=== PATIENT | male | born 1980 | race Caucasian/White ===

== ENCOUNTER 2019-12-10 16:34 | Outpatient (CLI) | payer BC, SELFPAY ==
--- NOTE | 2019-12-10 | XR_ITS ---
WS: [id number] Chest 2 views, 12/10/2019 Clinical Data: CHRONIC COUGH Comparison: PA and lateral chest, 09/25/2018. Findings: No nodules, masses or effusions are seen. The heart is normal. The pulmonary vascularity is not increased. No pneumonia or pneumothorax is seen. XR/XR chest 2V* [id number] Impression: Negative chest.
== END 2019-12-10 16:35 | disposition home or self-care (01) ==
LOC: RADOUTREAD 12-11 07:26
PROVIDERS: Visit Provider Family Medicine
DX: Z01.89 Encounter for other specified special examinations (principal)

== ENCOUNTER → 2021-09-14 00:01 | Outpatient (BNVA) | payer BC, SELFPAY | PROVIDERS: PCP Family Medicine; Visit Provider Orthopaedic Surgery | DX: Z20.822 Contact with and (suspected) exposure to COVID-19 (principal); M25.531 Pain in right wrist | CPT/HCPCS: 87635 ==

== ENCOUNTER 2021-09-21 06:18 | Day surgery (SDC) | payer BC, SELFPAY ==
[2021-09-20 15:18] VITALS: BMI 31.0
[2021-09-21] VITALS (22 sets, daily range): BP systolic 123–192; BP diastolic 79–127; PULSE 76–98; RESP 16–21; TEMP 36.6–37.1; O2SAT 92–98
[2021-09-21] MEDS: sodium chloride 0.9% 1,000 ML 30 ML IV (07:01)
--- NOTE | 2021-09-21 07:32 | ANES.PREANE2 ---
Pre-Anesthetic Assessment Pre-Anesthetic Assessment: Height/Weight: Height 1.75 m Weight 95.254 kg Temp Pulse Resp BP Pulse Ox 98.6 F 88 18 166/112 98 09/21/21 06:29 09/21/21 06:29 09/21/21 06:29 09/21/21 06:29 09/21/21 06:29 Preop Diagnosis: Right cubital tunnel syndrome Proposed Procedure: Operation Date: 09/21/21 07:45 Proposed Procedures p Ulna Nerve Decompression 48221 M25.531(Right) - Mansoor Burch MD Was Beta Vicky taken within 24 hours: N/A Was Clonidine taken within 24 hours: N/A Last intake: Intake Last Liquid Date 09/20/21 Last Liquid Time 22:00 Last Solid Date 09/20/21 Last Solid Time 20:00 Social: Social History: Tobacco and No alcohol Exam: Pre-Anes Outpt Exam: alert, oriented x 3 and regular rate & rhythm Airway: Submandibular: WNL Cervical ROM: WNL MP: 2 Dentition: False Additional comments: Heavy Dasilva Pulmonary: Pulmonary: COPD Anesthetic Plan: ASA status: 3 Anesthesia: General Risk of > 500 ml blood loss (7ml/kg in children): No Meds/Allergies Current Medications: Current Medications Generic Name Dose Route Start Last Admin Trade Name Freq PRN Reason Stop Dose Admin Sodium Chloride 1,000 mls @ 30 ml s/hr 09/21/21 06:30 09/21/21 07:01 Sodium Chloride 0.9% IV 09/22/21 06:29 30 mls/hr .Q24H PRETTY Administration PFSH Anesthesia PFSH: Family History Other Hypertension Social History Alcohol intake: former Data Anesthesia Cardiac Studies: Holter Monitor 01/18/20
--- NOTE | 2021-09-21 08:14 | W.PM.OPSUD ---
Surgery/Procedure H&P Update DATE OF PROCEDURE: September 21, 2021 DATE H&P PERFORMED: 08/22/21 H&P UPDATE INFORMATION: I have reviewed H&P completed within last 30 days PREOP DIAGNOSIS: Right cubital tunnel syndrome PLANNED PROCEDURE: Operation Date: 09/21/21 07:45 Proposed Procedures p Ulna Nerve Decompression 71957 M25.531(Right) - Mansoor Burch MD
--- NOTE | 2021-09-21 08:16 | PM.OP ---
Operative Report Date of procedure: September 21, 2021 Pre-op Diagnosis: Right cubital tunnel syndrome Post-op diagnosis: same Procedure Done: Right cubital tunnel decompression Pathology: none sent Surgeon: Mansoor Burch Anesthesia: General Estimated blood loss (mL): 5 Tourniquet time (min): 9 Findings: No masses or space-occupying lesions were seen within the cubital tunnel Condition: stable Disposition: PACU Brief History: Lico is a 41-year-old male with wrist pain and EMG nerve conduction studies showed cubital tunnel syndrome. Over the past 2 weeks the patient has began to develop numbness in his thumb index and long finger, however EMG nerve conduction studies showed only mild symptomatology. This appears to be a fairly acute onset and efforts will be made at conservative measures including night splint and a corticosteroid injections. Procedure: The patient was taken to the operating room and given a general anesthesia. A tourniquet was inflated to 225 mmHg. A timeout was performed. A 5 cm long incision was made behind the medial epicondyle. Dissection was accomplished bluntly under loupe magnification identifying the ulnar nerve proximally. Utilizing a hemostat the fascia over the nerve was elevated and incised proximally. Dissection was then carried distally behind the medial epicondyle and into the flexor carpi ulnaris musculature. Dissection was stopped with the first muscular branches identified. Elbow was brought through range of motion with the nerve seen to stay reduced behind the medial epicondyle. No formal transition was thought to be warranted. Wounds were irrigated with saline. Deep tissues were closed with 2-0 Vicryl. Subcutaneous is closed with 3-0 Vicryl. The skin was closed with a running 3-0 Prolene. An 18-gauge needle was then introduced into the carpal tunnel just ulnar to the palpable palmaris longus tendon. The carpal tunnel was infiltrated with 1/2 cc of Celestone Soluspan and 1/2 cc of 0.5% Marcaine. Steri-Strips were applied to the elbow.. Xeroform gauze, 4 x 4's, compressive cast padding, and Ketan wrap, and a sling were applied. The patient was taken recovery room in stable condition.
[2021-09-21] MEDS: betamethasone susp 6 mg/mL 5 mL 30 MG IM (08:55)
--- NOTE | 2021-09-21 09:25 | SUR.PHASEI ---
patient into pacu with oral airway in place and simple mask with O2 at 6L. patient has dressing to right arm in place and right arm in sling. fingers to right hand warm, pink. dressing dry.
--- NOTE | 2021-09-21 09:28 | P.PCN_ITS ---
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
--- NOTE | 2021-09-21 09:28 | PM.PACU ---
Documented by User: Jd Viveros CRNA 09/21/21 09:28 PACU note PACU note: VSS, Good respiratory effort, report to CORRECTIONAL FACILITY PSYCHIATRIST Post-Anesthesia Exam: awake
--- NOTE | 2021-09-21 09:32 | SUR.PHASEI ---
patient awake, oral airway removed. patient talking but drowsy. on room air with sats at 99%.
[2021-09-21] MEDS: fentaNYL 50 mcg/mL INJ 2mL IVP (09:41)
[2021-09-21] MEDS: hyDRALAzine 20 mg/mL INJ 1 mL 10 MG IVP (10:08)
--- NOTE | 2021-09-21 10:09 | PC.NURSE ---
Pts blood pressure elvated \Dr Whyte notified per Leia Armendariz. Orders recieved for 10 mg IV HYdralazine
[2021-09-21] MEDS: metoprolol tartrate 1 mg/1 mL SDV 5 mL 5 MG IVP (10:25)
[2021-09-21] MEDS: HYDROcodone-acetaminophen 5-325 mg Tablet 1 TAB PO (11:22)
--- NOTE | 2021-09-21 13:08 | ANE.PACU2 ---
Inpatient post-anesthesia follow up: Airway intact: Yes Vital signs: Temperature 98.7 F Pulse Rate 82 Respiratory Rate 18 Blood Pressure 171/118 Pulse Oximetry 95 Oxygen Delivery Me thod Room Air Oxygen Flow Rate 6 Fraction of Inspir ed Oxygen Hydration adequate: Yes Nausea and vomiting: No Pain level: 2 Mental status: Baseline
== END 2021-09-21 11:54 | disposition home or self-care (01) ==
PROVIDERS: PCP Family Medicine; Visit Provider Orthopaedic Surgery
PROC: (CPT 64718; principal; 2021-09-21 07:45)
DX: G56.21 Lesion of ulnar nerve, right upper limb (principal); J44.9 Chronic obstructive pulmonary disease, unspecified; Z82.49 Family history of ischemic heart disease and other diseases of the circulatory system
CPT/HCPCS: 64718; J0360; J0690; J0702; J2704; J3010; J3490; J7030

== ENCOUNTER 2022-08-03 09:12 | Outpatient (CLI) | payer BC, SELFPAY ==
--- NOTE | 2022-08-03 09:25 | MR_ITS ---
WS: [id number] MRI BRAIN WITH HIGH-RESOLUTION IMAGING THROUGH THE INTERNAL AUDITORY CANALS WITHOUT AND WITH CONTRAST HISTORY: SUDDEN IDIOPATHIC HEARING LOSS,LEFT EAR COMPARISON: None available. TECHNIQUE: Multiplanar, multisequence imaging is performed through the brain. Additional 3 mm imaging performed in multiple planes through the internal auditory canal. Postcontrast imaging with 20 ml's of MultiHance. No acute intracranial hemorrhage, midline shift, edema or mass effect. No acute infarct. Significant atrophy or volume loss. Very minimal small vessel ischemic type changes within the white matter. No prior infarct. No hemorrhage. Ventricles and extra-axial spaces are normal. No inferior displacement of cerebellar tonsils. Clivus and pituitary gland are normal. Internal and external auditory canals: Unremarkable. Cranial nerves VII and VIII complexes: Unremarkable. No enhancement or mass. Cerebellopontine angles: Normal. Paranasal sinuses: Moderate diffuse mucoperiosteal thickening in the maxillary sinuses. No air-fluid levels. Mastoid air cells: Normal. Calvarium and scalp: Normal. Visualized [place] and dural venous sinuses demonstrate no abnormality. MR/MR iac's wo/w con* [id number] IMPRESSION: 1. No signal abnormality or enhancement along the internal auditory canals. 2. Negative mastoid air cells. 3. No prior infarct. No hemorrhage.
[2022-08-03] MEDS: gadobenate dimeglumine 20 mL vial IV (10:12)
== END 2022-08-03 09:13 | disposition home or self-care (01) ==
PROVIDERS: PCP Family Medicine; Visit Provider Otolaryngology
DX: H91.22 Sudden idiopathic hearing loss, left ear (principal)
CPT/HCPCS: 70553; A9577

== ENCOUNTER 2023-05-12 12:24 | Emergency (ER) | payer BC, SELFPAY ==
--- NOTE | 2023-05-12 12:24 | ECG_ITS ---
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 Measurements Intervals [place] Rate: 99 P: 16 VA: 120 QRS: -10 QRSD: 94 T: -13 QT: 334 QTc: 429 Interpretive Statements SINUS RHYTHM LEFT VENTRICULAR HYPERTROPHY AND ST-T CHANGE [VOLTAGE CRITERIA PLUS ST/T ABNORMALITY] No previous ECG available for comparison Electronically Signed On 05-12-2023 15:11:41 CDT by Kurt José M.D. [email or web address]/[id number] f
[2023-05-12 12:25] VITALS: PULSE 103; RESP 26; TEMP 36.8; O2SAT 99; BMI 31.0
--- NOTE | 2023-05-12 12:37 | XRR_ITS ---
PROCEDURE INFORMATION: Exam: XR Chest Exam date and time: 05/12/2023 12:59 PM Age: 43 years old Clinical indication: Chest wall pain; Additional info: Chest pain TECHNIQUE: Imaging protocol: Radiologic exam of the chest. Views: 1 view. COMPARISON: CR XR chest 2V* [id number] 06/24/2020 11:24 AM FINDINGS: Lungs: Unremarkable. No consolidation. Pleural spaces: Unremarkable. No pleural effusion. No pneumothorax. Heart/Mediastinum: Unremarkable. No cardiomegaly. Bones/joints: Unremarkable. XR/XR chest 1V portable [id number] IMPRESSION: No acute findings.
--- NOTE | 2023-05-12 12:43 | ED_ITS ---
HPI - Chest Pain General: Chief Complaint: Chest Pain Stated Complaint: back injury Time Seen by Provider: 05/12/23 12:37 Source: patient Mode of arrival: ambulatory History of Present Illness: 43-year-old male presents emergency room complaining of chest pain. He describes the chest pain as starting in his shoulder and moving to his left chest and substernally. He was seen previously at another local ER and evaluated had a negative work-up. Having recurrent symptoms today. States pain focused around the left shoulder is worse with movement at the shoulder. He was seen yesterday at [facility]. They prescribed pain medications and discharged him home. MD complaint: chest pain Onset (ago): day(s) Prior episodes: Yes Onset: during rest Pain location: other (Begins in the left shoulder radiates to the chest) Quality: sharp Relieving factors: rest Exacerbating factors: movement Associated symptoms: Deny abdominal pain, diaphoresis, dyspnea, fever(s), leg edema, nausea, palpitations, sense of impending doom, syncope or vomiting Treatment prior to arrival: other (Pain medications) Review of Systems Const: Denies: fever(s), chills or diaphoresis ENMT: Denies: throat pain, ear or mastoid pain, nasal discharge or nasal congestion Card: Reports: chest pain; Denies: palpitations, irregular heart rhythm, edema or syncope Resp: Denies: dyspnea GI: Denies: abdominal pain, nausea or vomiting : Denies: flank pain, dysuria, urinary frequency or urinary urgency Musc: Reports: joint pain; Denies: neck pain or back pain Skin/Breast: Denies: rash or pruritus PFSH ED PFSH: Family History Other Hypertension Social History Alcohol intake: former Physical Exam Const: GENERAL APPEARANCE: cooperative and comfortable ORIENTA TION/CONSCIOUSNESS: Yes awake, Yes oriented to person, Yes oriented to place and Yes oriented to time HENMT: COMMON NORMALS: normocephalic, atraumatic and hearing grossly normal bilaterally HEAD & SCALP: normocephalic and atraumatic Resp: COMMON NORMALS: normal respiratory effort, No retractions, No use of accessory muscles and clear to auscultation bilaterally AUSCULTATION: clear to auscultation bilaterally Cardio: COMMON NORMALS: regular rate, regular rhythm and No murmurs present (Cardio) RATE: regular rate RHYTHM: regular rhythm GI: COMMON NORMALS: Soft to palpation and No hepatosplenomegaly present AUSCULTATION: Yes normoactive bowel sounds PALPATION: Yes Soft to palpation, No Tenderness to palpation present (GI), No Guarding due to palpation present (GI) and Yes No hepatosplenomegaly present Extremity: COMMON NORMALS: normal to inspection, capillary refill normal, no clubbing, cyanosis or edema, no calf tenderness and no pedal edema Neuro: SENSORIUM/ORIENTATION: Yes oriented to person, Yes oriented to place and Yes oriented to time Skin: COMMON NORMALS: no rashes or lesions noted GENERAL SKIN EXAM: no rashes or lesions noted Course Vital Signs: Vital signs: Vital Signs Temperature 98.2 F 05/12/23 12:25 Pulse Rate 77 05/12/23 15:51 Respiratory Rate 16 05/12/23 14:38 Blood Pressure 175/119 05/12/23 15:51 Pulse Oximetry 93 05/12/23 15:51 Oxygen Delivery Me thod Room Air 05/12/23 13:06 MDM - Chest Pain Medical Decision Making Records received from [facility] patient had extensive work-up there including serial cardiac enzymes EKGs CTA of the chest and CT for thoracic spine. All of this was negative. On exam most of his pain seems actually focused around the shoulder itself. He denies any recent trauma or falls illness taxes if he has a traumatic rotator cuff tear. CRP is normal his white count is elevated but he was started on steroids after he left [facility] according to their notes patient does states he has been taking them. At this time not finding any emergent condition. We did CT his shoulder to make sure there was no evidence of infection in the joint itself although palpation of the joint there is no redness or erythema is not hot to the touch. Neurovascularly he is intact. Discharge patient home continue the steroids given diclofenac as well as some hydrocodone. We will refer him to orthopedics. Medical Records I reviewed the patient's medical records. Lab Data I reviewed the patient's lab results. 05/12/23 12:56 05/12/23 12:56 Radiology Impressions Chest X-Ray 05/12/23 12:37 IMPRESSION: No acute findings. Shoulder X-Ray 05/12/23 13:17 IMPRESSION: No acute findings. Shoulder CT 05/12/23 13:57 IMPRESSION: Unremarkable CT. Laboratory Results WBC 21.52 10^3/uL (3.29-11.43) H 05/12/23 12:56 RBC 6.30 10^6/uL (3.85-5.65) H 05/12/23 12:56 Hgb 16.80 g/dL (11.27-16.99) 05/12/23 12:56 Hct 50.2 % (37-53) 05/12/23 12:56 MCV 79.7 fl (82-101) L 05/12/23 12:56 MCH 26.7 pg (27-33) L 05/12/23 12:56 MCHC 33.5 g/dL (30-55) 05/12/23 12:56 RDW 13.7 % (12.1-15.1) 05/12/23 12:56 Plt Count 366 10^3/cmm (157-399) 05/12/23 12:56 MPV 9.0 fL (7.4-10.4) 05/12/23 12:56 Neut % (Auto) 84.9 % 05/12/23 12:56 Lymph % (Auto) 10.5 % 05/12/23 12:56 [place] % (Auto) 3.9 % 05/12/23 12:56 Eos % (Auto) 0.0 % 05/12/23 12:56 Baso % (Auto) 0.1 % 05/12/23 12:56 Neut # (Auto) 18.24 10^3/uL (1.8-7.7) H 05/12/23 12:56 Lymph # (Auto) 2.3 10^3/uL (0.8-4.8) 05/12/23 12:56 [place] # (Auto) 0.9 10^3/uL (0.2-0.9) 05/12/23 12:56 Eos # (Auto) 0.0 10^3/uL (0.0-0.8) 05/12/23 12:56 Baso # (Auto) 0.0 10^3/uL (0.0-0.1) 05/12/23 12:56 Nucleated RBC % (auto) 0 % 05/12/23 12:56 Nucleated RBCs # 0.0 /100WBC 05/12/23 12:56 Sodium 136 mmol/L (136-145) 05/12/23 12:56 Potassium 4.5 mmol/L (3.5-5.1) 05/12/23 12:56 Chloride 97 mmol/L (98-107) L 05/12/23 12:56 Carbon Dioxide 26 mmol/L (22-29) 05/12/23 12:56 Anion Gap 17.5 (5-19) 05/12/23 12:56 BUN 16 mg/dL (6-20) 05/12/23 12:56 Creatinine 0.8 mg/dL (0.7-1.2) 05/12/23 12:56 GFR Calculation 104.5 mL/min (90-130) 05/12/23 12:56 Glucose 118 mg/dL (65-115) H 05/12/23 12:56 Calculated Osmolality 284 mOsm/kg (285-295) L 05/12/23 12:56 Calcium 9.7 mg/dL (8.5-10.5) 05/12/23 12:56 Total Bilirubin 0.3 mg/dL (0.15-1.2) 05/12/23 12:56 AST 30 U/L (0-40) 05/12/23 12:56 ALT 60 U/L (0-41) H 05/12/23 12:56 Alkaline Phosphatase 135 U/L (40-130) H 05/12/23 12:56 Troponin T Baseline 8 ng/L (0-15) 05/12/23 12:56 Troponin T 120 Minute 9.47 ng/L (0-15) 05/12/23 14:51 Delta Troponin T 1.47 ABS# (0-10) 05/12/23 14:51 C-Reactive Protein 3.0 mg/L (0.0-4.9) 05/12/23 12:56 Total Protein 7.5 g/dL (6.6-8.7) 05/12/23 12:56 Albumin 4.8 g/dL (3.5-5.2) 05/12/23 12:56 Globulin 2.7 g/dL (1.3-4.6) 05/12/23 12:56 Discharge Plan Discharge Patient Disposition: Home Clinical Impression: Acute pain of left shoulder Condition: Stable Prescriptions: New hydrocodone-acetaminophen 5-325 mg tablet 1 tab PO Q6H PRN (Reason: pain) Qty: 10 0RF diclofenac sodium 75 mg tablet,delayed release (DR/EC) 75 mg PO Q12H PRN (Reason: pain) Qty: 20 0RF Discontinued meloxicam 15 mg tablet 15 mg PO DAILY No Action levocetirizine [Xyzal] 5 mg tablet 5 mg PO DAILY (DME) cock up splint See Rx Instructions .Route .MEDSUPPLY Qty: 1 0RF Rx Instructions: As directed chlorzoxazone 500 mg tablet 250 mg PO TID PRN (Reason: Muscle Spasm) methylprednisolone 4 mg tablets,dose pack See Rx Instructions .ROUTE .COMPLEX Rx Instructions: TAKE PER PACKAGE INSTRUCTIONS Discharge Orders: Discharge ED (Routine); Ordered 05/12/23 Ordered By: Esa Zhu Referrals: Dyllan Luque MD [Primary Care Provider] - Patient Instructions: Opioid Safety, Pain Management Activity Restrictions/Additional Instructions: Case management make arrangements for you to see orthopedics. Coding Level of Care Code ED Database Management Specialist for Leroy Vigil
[2023-05-12 13:04] LABS: Basophils % 0.1 %; Hematocrit 50.2 % (37-53); Lymphocytes # 2.3 10^3/uL (0.8-4.8); Lymphocytes % 10.5 %; Mean Corpuscular HGB Conc 33.5 g/dL (30-55); Mean Corpuscular Hemoglobin 26.7 pg (27-33); Mean Corpuscular Volume 79.7 fl (82-101); Monocytes # 0.9 10^3/uL (0.2-0.9); Monocytes % 3.9 %; Neutrophils # 18.24 10^3/uL (1.8-7.7); Neutrophils % 84.9 %; Nucleated Red Blood Cells % 0 %; Platelet Count 366 10^3/cmm (157-399); Red Cell Distribution Width 13.7 % (12.1-15.1); White Blood Count 21.52 10^3/uL (3.29-11.43)
[2023-05-12 13:06] VITALS: BP 163/109; PULSE 85; RESP 18; O2SAT 95
[2023-05-12] MEDS: aspirin 81 mg Chew Tablet 324 MG PO (13:15)
--- NOTE | 2023-05-12 13:17 | XRR_ITS ---
PROCEDURE INFORMATION: Exam: XR Left Shoulder Exam date and time: 05/12/2023 1:22 PM Age: 43 years old Clinical indication: Pain; Shoulder; Left TECHNIQUE: Imaging protocol: Radiologic exam of the left shoulder. Views: 2 or more views. COMPARISON: CR XR shoulder LT min 2V* [id number] 05/09/2023 7:45 AM FINDINGS: Bones/joints: Osseous structures are intact. Negative for fracture. Joint spaces are preserved. Soft tissues: Normal. XR/XR shoulder LT min 2V* [id number] IMPRESSION: No acute findings.
[2023-05-12 13:35] LABS: Troponin(5th) Baseline 8 ng/L (0-15)
[2023-05-12 13:36] LABS: Alanine Aminotransferase 60 U/L (0-41); Albumin Level 4.8 g/dL (3.5-5.2); Alkaline Phosphatase 135 U/L (40-130); Anion Gap 17.5 (5-19); Aspartate Amino Transferase 30 U/L (0-40); Blood Urea Nitrogen 16 mg/dL (6-20); Calcium 9.7 mg/dL (8.5-10.5); Carbon Dioxide 26 mmol/L (22-29); Chloride 97 mmol/L (98-107); Globulin 2.7 g/dL (1.3-4.6); Glomerular Filtration Rate 104.5 mL/min (90-130); Glucose 118 mg/dL (65-115); Osmolality Calculated 284 mOsm/kg (285-295); Potassium 4.5 mmol/L (3.5-5.1); Sodium 136 mmol/L (136-145); Total Bilirubin 0.3 mg/dL (0.15-1.2); Total Protein 7.5 g/dL (6.6-8.7)
--- NOTE | 2023-05-12 13:57 | CTR_ITS ---
PROCEDURE INFORMATION: Exam: CT Left Upper Extremity With Contrast, Shoulder Exam date and time: 05/12/2023 2:16 PM Age: 43 years old Clinical indication: Pain; Shoulder; Left; Additional info: Pain/leukocytosis TECHNIQUE: Imaging protocol: Computed tomography of the left upper extremity with contrast. Exam focused on the shoulder Radiation optimization: All CT scans at this facility use at least one of these dose optimization techniques: automated exposure control; mA and/or kV adjustment per patient size (includes targeted exams where dose is matched to clinical indication); or iterative reconstruction. Contrast material: OMNI 350; Contrast volume: 100 ml; Contrast route: INTRAVENOUS (IV); REPORTING DATA: Count of CT and Cardiac NM exams in prior 12 months: This patient has received 0 known CTs and 0 known cardiac nuclear medicine studies in the 12 months prior to the current study. COMPARISON: CR (CHEST, ) 05/12/2023 1:22 PM RADIATION DOSE METRICS: Total DLP (mGy-cm): 251.79 FINDINGS: Bones/joints: Normal. No acute fracture or dislocation. Soft tissues: Normal. CT/CT shoulder LT w con [id number] IMPRESSION: Unremarkable CT.
[2023-05-12] MEDS: iohexol 350 mg/mL 500 mL Btl (per mL) IV (14:19)
--- NOTE | 2023-05-12 14:37 | ECG_ITS ---
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 Measurements Intervals [place] Rate: 84 P: 42 TN: 128 QRS: 61 QRSD: 97 T: 59 QT: 385 QTc: 457 Interpretive Statements SINUS RHYTHM POSSIBLE LEFT ATRIAL ENLARGEMENT [-0.1mV P-WAVE IN V1/V2] POSSIBLE LEFT VENTRICULAR HYPERTROPHY [VOLTAGE CRITERIA PLUS LAE OR QRS WIDENING] Compared to ECG 05/12/2023 12:24:15 ST (T wave) deviation no longer present Electronically Signed On 05-12-2023 15:21:53 CDT by Kurt José M.D. [id number]
[2023-05-12 14:38] VITALS: RESP 16
[2023-05-12] MEDS: morphine 4 mg/mL SDV 1 mL IVP (14:38)
[2023-05-12] MEDS: ondansetron 2 mg/ML SDV 2 mL 4 MG IVP (14:39)
[2023-05-12 15:51] VITALS: BP 175/119; PULSE 77; O2SAT 93
[2023-05-12 16:30] LABS: Troponin 5 2HR 9.47 ng/L (0-15); Troponin 5 2HR Delta 1.47 ABS# (0-10)
--- NOTE | 2023-05-13 10:33 | DCPLANNER ---
Addendum entered by Carmela Elizabeth 05/22/23 11:08: acting manager received the following message from the ortho clinic regarding follow up appointment: tried to call patient to get set up for 06/14 w/ dr landry - left . I will mail him a letter to give us call as well Addendum entered by Carmela Elizabeth 05/15/23 11:33: acting manager received the following message from the ortho clinic regarding follow up appointment: spoke to patient - he is going to call us back once he gets an date set up for his MRI. We will get him in with Dr. Landry after MRI Original Note: acting manager had message to schedule a follow up appointment for patient for ortho. acting manager sent patients information to the front office staff at ortho. Patients information will be printed and reviewed. Clinic will call patient with appointment information.
--- NOTE | 2023-05-13 15:03 | DCPLANNER ---
work manager had message to schedule an outpatient MRI for patient. work manager faxed signed order to centralized scheduling, who will call patient with appointment information.
== END 2023-05-12 15:54 | disposition home or self-care (01) ==
PROVIDERS: Emergency Provider Family Medicine; PCP Family Medicine
DX: M25.512 Pain in left shoulder (principal)
CPT/HCPCS: 36415; 71045; 73030; 73201; 80053; 84484; 85025; 86140; 93005; 96374; 96375; 99285; J2270; J2405; Q9967

== ENCOUNTER 2023-06-06 14:56 | Outpatient (CLI) | payer BC, SELFPAY ==
--- NOTE | 2023-06-06 15:06 | MR_ITS ---
WS: [id number] MRI LEFT SHOULDER HISTORY: L SHOULDER PAIN COMPARISON: CT LEFT shoulder 05/12/2023 TECHNIQUE: Multiplanar sequences of the shoulder joint are submitted. Mild AC joint arthritis. Mild osteophyte encroachment upon the supraspinatus muscle. Mild subacromial impingement. No fluid within the subacromial or subdeltoid bursa. Normal position of the biceps tend on. No os acromion. No rotator cuff muscle atrophy or edema. No rotator cuff tear. No labral tear. There is a tiny amount of increased T2 signal seen only on one image in the superior labrum. Cannot determine labral tear o n a single image with increased signal. IMPRESSION: 1. Mild AC joint arthritis with encroachment upon the supraspinatus muscle. 2. Mild subacromial impingement. 3. No rotator cuff tear.
== END 2023-06-06 14:57 | disposition home or self-care (01) ==
PROVIDERS: PCP Family Medicine; Visit Provider Family Medicine
DX: M19.012 Primary osteoarthritis, left shoulder (principal); M75.42 Impingement syndrome of left shoulder
CPT/HCPCS: 73221

== ENCOUNTER 2023-07-08 08:38 | Outpatient (CLI) | payer BC, SELFPAY ==
--- NOTE | 2023-07-08 08:45 | MR_ITS ---
WS: [id number] MRI CERVICAL SPINE NONCONTRAST TECHNIQUE: Sagittal T1, T2 and STIR imaging. Axial T2, gradient, and fiesta imaging. CLINICAL INFORMATION: post op COMPARISON: None. FINDINGS: Straightening with slight reversal normal cervical lordosis. Segmentation anomaly C6-7. Disc bulging worse at C7-T1. C2-C3: Mild LEFT and no significant RIGHT foraminal narrowing. Mild LEFT facet arthropathy. Spinal ca nal is patent. C3-C4: Disc osteophyte complex with endplate ridging. Moderate LEFT and mild RIGHT bony foraminal jigar rowing. Mild facet arthropathy. C4-C5: Disc osteophyte complex with endplate ridging. Severe RIGHT and moderate LEFT bony foraminal n arrowing. Mild facet arthropathy. Mild central canal stenosis. C5-C6: Disc osteophyte complex with endplate ridging. Spinal canal is patent. Moderate to severe RIGH T and moderate LEFT bony foraminal narrowing. Mild facet arthropathy. C6-C7: Segmentation anomaly. Spinal canal and foramen are patent. Mild facet arthropathy. C7-T1: LEFT paracentral protrusion. Moderate LEFT and mild RIGHT foraminal narrowing. Visualized brain stem structures: Normal. Prevertebral soft tissues: Normal. IMPRESSION: 1. Straightening with slight reversal of the normal cervical lordosis. 2. Mild central canal stenosis C4-5. 3. Small LEFT subarticular disc protrusion C7-T1 with moderate LEFT foraminal narrowing. 4. Moderate to severe bony foraminal narrowing RIGHT C4-C5 5. Moderate to severe bilateral bony foraminal narrowing C5-6 RIGHT greater than LEFT. 6. Moderate facet arthropathy C4-C5 and C5-C6.
== END 2023-07-08 08:39 | disposition home or self-care (01) ==
LOC: RAD 08:39
PROVIDERS: PCP Family Medicine; Visit Provider Physician Assistant
DX: Z98.890 Other specified postprocedural states (principal); M48.061 Spinal stenosis, lumbar region without neurogenic claudication; M50.23 Other cervical disc displacement, cervicothoracic region
CPT/HCPCS: 72141

== ENCOUNTER 2023-12-23 13:56 | Observation (INO) | payer BC, SELFPAY ==
[2023-12-23] VITALS (11 sets, daily range): BP systolic 126–181; BP diastolic 83–122; PULSE 75–115; RESP 15–29; TEMP 37–37.1; O2SAT 91–99; BMI 24.3
--- NOTE | 2023-12-23 13:58 | XRR_ITS ---
PROCEDURE INFORMATION: Exam: XR Chest Exam date and time: 12/23/2023 2:07 PM Age: 43 years old Clinical indication: Pain; Chest pressure; Additional info: Cp TECHNIQUE: Imaging protocol: Radiologic exam of the chest. Views: 1 view. COMPARISON: CR XR chest 1V portable [id number] 05/12/2023 12:59 PM FINDINGS: Lungs: Unremarkable. No consolidation. Pleural spaces: Unremarkable. No pleural effusion. No pneumothorax. Heart/Mediastinum: Unremarkable. No cardiomegaly. Bones/joints: There is deformity of the left 1st rib. No acute findings. XR/XR chest 1V portable [id number] IMPRESSION: No acute findings.
--- NOTE | 2023-12-23 13:58 | ECG_ITS ---
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 Measurements Intervals [place] Rate: 114 P: 59 ME: 114 QRS: 70 QRSD: 90 T: 70 QT: 329 QTc: 453 Interpretive Statements SINUS TACHYCARDIA WITH SHORT ME INTERVAL VOLTAGE CRITERIA FOR LVH [MEETS CRITERIA IN ONE OF: R(aVL), S(V1), R(V5), R(V5/V6)+S(V1)] NONSPECIFIC T-WAVE ABNORMALITY Compared to ECG 05/12/2023 14:43:56 Short ME interval now present T-wave abnormality now present Sinus rhythm no longer present Electronically Signed On 12-23-2023 15:37:23 CDT by Kurt José M.D. [id number]
[2023-12-23 14:27] LABS: Basophils % 0.4 %; Eosinophils % 0.4 %; Hematocrit 47.6 % (37-53); Lymphocytes # 3.7 10^3/uL (0.8-4.8); Lymphocytes % 35.5 %; Mean Corpuscular Hemoglobin 26.7 pg (27-33); Mean Corpuscular Volume 78.5 fl (82-101); Mean Platelet Volume 8.6 fL (7.4-10.4); Monocytes # 0.6 10^3/uL (0.2-0.9); Monocytes % 6.1 %; Neutrophils # 5.97 10^3/uL (1.8-7.7); Neutrophils % 57.3 %; Nucleated Red Blood Cells % 0 %; Platelet Count 338 10^3/cmm (157-399); Red Blood Count 6.06 10^6/uL (3.85-5.65); Red Cell Distribution Width 13.5 % (12.1-15.1); White Blood Count 10.42 10^3/uL (3.29-11.43)
[2023-12-23 14:44] LABS: Alanine Aminotransferase 22 U/L (0-41); Albumin Level 4.5 g/dL (3.5-5.2); Alkaline Phosphatase 145 U/L (40-130); Anion Gap 16.8 (5-19); Aspartate Amino Transferase 26 U/L (0-40); Blood Urea Nitrogen 7 mg/dL (6-20); Calcium 9.8 mg/dL (8.5-10.5); Carbon Dioxide 22 mmol/L (22-29); Chloride 97 mmol/L (98-107); Creatinine Clr Calc Pharmacy 106.0792; Globulin 2.5 g/dL (1.3-4.6); Glomerular Filtration Rate 91.3 mL/min (90-130); Glucose 104 mg/dL (65-115); Osmolality Calculated 272 mOsm/kg (285-295); Potassium 3.8 mmol/L (3.5-5.1); Sodium 132 mmol/L (136-145); Total Bilirubin 0.5 mg/dL (0.15-1.2); Troponin(5th) Baseline 53 ng/L (0-15)
--- NOTE | 2023-12-23 14:48 | ED_ITS ---
HPI - Chest Pain 2 General: Chief Complaint: Chest Pain Stated Complaint: chest pain Time Seen by Provider: 12/23/23 14:48 Source: patient Mode of arrival: ambulatory History of Present Illness: 43-year-old male presents emergency room with a complaint of chest pain. 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 Chest pain is reproducible with palpation and deep inspiration patient reports having passed out a couple of times since this started. While he was in the exam room he was hyperventilating and twice passed out appeared to have had a vasovagal episode and then started back awake. No tonic-clonic activity. He denies fever sweats or chills initially was mildly tachycardic but did not have any hypoxia MD complaint: chest pain Onset (ago): minute(s) Timing of current episode: episodic Onset: during exertion Pain location: right chest Quality: sharp Relieving factors: nothing Exacerbating factors: nothing Associated symptoms: Deny abdominal pain, diaphoresis, dyspnea, fever(s), leg edema, nausea, palpitations, sense of impending doom, syncope or vomiting Treatment prior to arrival: none Review of Systems 2 Const: Denies: fever(s), chills or diaphoresis Card: Denies: chest pain, palpitations or syncope Resp: Denies: dyspnea GI: Denies: abdominal pain, nausea or vomiting : Denies: dysuria, urinary frequency or urinary urgency Musc: Denies: neck pain or back pain Skin/Breast: Denies: rash PFSH ED 2 PFSH: Medical History Cervical spondylosis with radiculopathy Family History Other Hypertension Social History Smoking and tobacco/nicotine status: current every day tobacco/nicotine user Alcohol intake: former Physical Exam 2 Const: GENERAL APPEARANCE: cooperative and comfortable O RIENTATION/CONSCIOUSNESS: Yes awake, Yes oriented to person, Yes oriented to place and Yes oriented to time HENMT: COMMON NORMALS: normocephalic, atraumatic and hearing grossly normal bilaterally HEAD & SCALP: normocephalic and atraumatic Resp: COMMON NORMALS: normal respiratory effort, No retractions, No use of accessory muscles and clear to auscultation bilaterally AUSCULTATION: clear to auscultation bilaterally Cardio: COMMON NORMALS: regular rate, regular rhythm and No murmurs present (Cardio) RATE: regular rate RHYTHM: regular rhythm GI: COMMON NORMALS: Soft to palpation and No hepatosplenomegaly present A USCULTATION: Yes normoactive bowel sounds PALPATION: Yes Soft to palpation, No Tenderness to palpation present (GI), No Guarding due to palpation present (GI) and Yes No hepatosplenomegaly present Extremity: COMMON NORMALS: normal to inspection, capillary refill normal, no clubbing, cyanosis or edema, no calf tenderness and no pedal edema Neuro: SENSORIUM/ORIENTATION: Yes oriented to person, Yes oriented to place and Yes oriented to time Skin: COMMON NORMALS: no rashes or lesions noted GENERAL SKIN EXAM: no rashes or lesions noted Course 2 Vital Signs: Vital signs: Vital Signs Temperature 98.7 F 12/23/23 14:00 Pulse Rate 96 12/23/23 17:20 Respiratory Rate 17 12/23/23 17:20 Blood Pressure 172/119 12/23/23 17:20 Pulse Oximetry 98 12/23/23 17:20 Oxygen Delivery Me thod Room Air 12/23/23 14:00 MDM - Chest Pain Medical Decision Making Briefly new presented right-sided chest pain that was worsened with deep inspiration and by palpation. Second Trope shows a positive delta of 17 his EKG does not show any acute ST elevation but he continues to have chest pain he said a couple more episodes of what appeared to be vasovagal episode. Get severe pain passed out started awake and not seizure-like activity. Discussed Dr. Flores would already initiated nitro and heparin which she concurred with. He recommends treating the patient as an NSTEMI unless further EKG changes develop. Reviewed with the patient and family will admit will also get a CTA to rule out PE. Discussed with Dr. Lopez and will consult Dr. Flores as an inpatient. Differential Diagnosis Likely acute massive pulmonary embolism and acute myocardial infarction (NSTEMI) Medical Records I reviewed the patient's medical records. Lab Data I reviewed the patient's lab results. 12/23/23 14:11 12/23/23 14:11 Radiology Impressions Chest X-Ray 12/23/23 13:58 IMPRESSION: No acute findings. Laboratory Results WBC 10.42 10^3/uL (3.29-11.43) 12/23/23 14:11 RBC 6.06 10^6/uL (3.85-5.65) H 12/23/23 14:11 Hgb 16.20 g/dL (11.27-16.99) 12/23/23 14:11 Hct 47.6 % (37-53) 12/23/23 14:11 MCV 78.5 fl (82-101) L 12/23/23 14:11 MCH 26.7 pg (27-33) L 12/23/23 14:11 MCHC 34.0 g/dL (30-55) 12/23/23 14:11 RDW 13.5 % (12.1-15.1) 12/23/23 14:11 Plt Count 338 10^3/cmm (157-399) 12/23/23 14:11 MPV 8.6 fL (7.4-10.4) 12/23/23 14:11 Neut % (Auto) 57.3 % 12/23/23 14:11 Lymph % (Auto) 35.5 % 12/23/23 14:11 [place] % (Auto) 6.1 % 12/23/23 14:11 Eos % (Auto) 0.4 % 12/23/23 14:11 Baso % (Auto) 0.4 % 12/23/23 14:11 Neut # (Auto) 5.97 10^3/uL (1.8-7.7) 12/23/23 14:11 Lymph # (Auto) 3.7 10^3/uL (0.8-4.8) 12/23/23 14:11 [place] # (Auto) 0.6 10^3/uL (0.2-0.9) 12/23/23 14:11 Eos # (Auto) 0.0 10^3/uL (0.0-0.8) 12/23/23 14:11 Baso # (Auto) 0.0 10^3/uL (0.0-0.1) 12/23/23 14:11 Nucleated RBC % (auto) 0 % 12/23/23 14:11 Nucleated RBCs # 0.0 /100WBC 12/23/23 14:11 PT 12.40 SECONDS (12.1-14.9) 12/23/23 14:11 INR 0.90 (0.8-1.2) 12/23/23 14:11 Sodium 132 mmol/L (136-145) L 12/23/23 14:11 Potassium 3.8 mmol/L (3.5-5.1) 12/23/23 14:11 Chloride 97 mmol/L (98-107) L 12/23/23 14:11 Carbon Dioxide 22 mmol/L (22-29) 12/23/23 14:11 Anion Gap 16.8 (5-19) 12/23/23 14:11 BUN 7 mg/dL (6-20) 12/23/23 14:11 Creatinine 0.9 mg/dL (0.7-1.2) 12/23/23 14:11 GFR Calculation 91.3 mL/min (90-130) 12/23/23 14:11 Glucose 104 mg/dL (65-115) 12/23/23 14:11 Calculated Osmolality 272 mOsm/kg (285-295) L 12/23/23 14:11 Calcium 9.8 mg/dL (8.5-10.5) 12/23/23 14:11 Total Bilirubin 0.5 mg/dL (0.15-1.2) 12/23/23 14:11 AST 26 U/L (0-40) 12/23/23 14:11 ALT 22 U/L (0-41) 12/23/23 14:11 Alkaline Phosphatase 145 U/L (40-130) H 12/23/23 14:11 Troponin T Baseline 53 ng/L (0-15) H 12/23/23 14:11 Troponin T 120 Minute 70.01 ng/L (0-15) H 12/23/23 16:27 Delta Troponin T 17.01 ABS# (0-10) H* 12/23/23 16:27 Total Protein 7.0 g/dL (6.6-8.7) 12/23/23 14:11 Albumin 4.5 g/dL (3.5-5.2) 12/23/23 14:11 Globulin 2.5 g/dL (1.3-4.6) 12/23/23 14:11 All radiology interpretation(s) finalized by discharge Discharge Plan Discharge Patient Disposition: Admitted As Inpatient Clinical Impression: Non-ST elevation MN (NSTEMI), HTN (hypertension) Condition: Stable Coding Level of Care Code ED Wood Coater for Leroy Vigil
--- NOTE | 2023-12-23 15:20 | ECG_ITS ---
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 Measurements Intervals [place] Rate: 89 P: 35 IA: 132 QRS: 45 QRSD: 98 T: 68 QT: 373 QTc: 456 Interpretive Statements SINUS RHYTHM POSSIBLE LEFT ATRIAL ENLARGEMENT [-0.1mV P-WAVE IN V1/V2] POSSIBLE LEFT VENTRICULAR HYPERTROPHY [VOLTAGE CRITERIA PLUS LAE OR QRS WIDENING] NONSPECIFIC T-WAVE ABNORMALITY Compared to ECG 12/23/2023 13:53:25 Sinus tachycardia no longer present Short IA interval no longer present T-wave abnormality still present Electronically Signed On 12-23-2023 15:41:59 CDT by Kurt José M.D. [id number]
[2023-12-23 16:51] LABS: Troponin 5 2HR 70.01 ng/L (0-15)
[2023-12-23 16:54] LABS: Troponin 5 2HR Delta 17.01 ABS# (0-10)
[2023-12-23] MEDS: heparin 5,000 unit/mL INJ 1 mL IV (17:12)
--- NOTE | 2023-12-23 17:12 | CTR_ITS ---
PROCEDURE INFORMATION: Exam: CTA Chest With Contrast Exam date and time: 12/23/2023 5:40 PM Age: 43 years old Clinical indication: Pain; Right-sided; Additional info: Chest pain/tachycardia TECHNIQUE: Imaging protocol: Computed tomographic angiography of the chest with contrast. Exam focused on the arteries. 3D rendering (Not supervised by radiologist): MIP and/or 3D reconstructed images were created by the technologist. Radiation optimization: All CT scans at this facility use at least one of these dose optimization techniques: automated exposure control; mA and/or kV adjustment per patient size (includes targeted exams where dose is matched to clinical indication); or iterative reconstruction. Contrast material: OMNI 350; Contrast volume: 100 ml; Contrast route: INTRAVENOUS (IV); COMPARISON: CR XR chest 1V portable [id number] 12/23/2023 2:07 PM RADIATION DOSE METRICS: Total DLP (mGy-cm): 826.88 FINDINGS: Pulmonary arteries: A few small filling defects in subsegmental branches in the left upper lobe (series 16 image 225 and 242). RV/LV ratio 0.6. Aorta: Small amount of adherent thrombus at the junction of the arch and descending aorta. Lungs: Mild biapical paraseptal emphysema. Pleural spaces: Unremarkable. No pneumothorax. No pleural effusion. Heart: Unremarkable. No cardiomegaly. No pericardial effusion. Lymph nodes: 1.1 cm right paratracheal lymph node enlargement is likely reactive. Additional mildly enlarged hilar lymph nodes noted. Bones/joints: Unremarkable. No acute fracture. Soft tissues: Unremarkable. CT/CT angio chest PE protcl [id number] IMPRESSION: 1. Small nonocclusive emboli of indeterminate age in a few lingular pulmonary arterial branches, possibly residual sequelae of chronic or subacute embolism. No right-sided pulmonary emboli identified. 2. Mild paraseptal emphysema. 3. Small amount of wall thrombus in the aortic arch/descending aortic junction COMMENT: THIS REPORT CONTAINS FINDINGS THAT MAY BE CRITICAL TO PATIENT CARE. The exam findings were verbally communicated by me to DR. Petersen via telephone conference at 6:41 PM CDT on 12/23/2023. The findings were acknowledged and understood.
[2023-12-23] MEDS: heparin drip 25,000 UNIT/500 ML PREMIX 20.9600000000000009 UNIT IV (17:15)
[2023-12-23] MEDS: nitroglycerin drip 50 MG/250 ML PREMIX IV (17:15)
[2023-12-23] MEDS: morphine 4 mg/mL SDV 1 mL IVP (17:15)
[2023-12-23] MEDS: ondansetron 2 mg/ML SDV 2 mL 4 MG IVP (17:21)
[2023-12-23] MEDS: aspirin 81 mg Chew Tablet 324 MG PO (17:21)
[2023-12-23] MEDS: iohexol 350 mg/mL 500 mL Btl (per mL) IV (17:57)
--- NOTE | 2023-12-23 18:12 | P.HP_ITS ---
Providers/Chief Complaint 2 Primary Care Provider: Dyllan Luque MD Chief Complaint: chest pain History of Present Illness Lico Randall is a 43 year old male with no significant past medical history but current smoker presented with complaint of chest pain. 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 Chest pain is reproducible with palpation and deep inspiration patient reports having passed out a couple of times since this started. While he was in the exam room he was hyperventilating and twice passed out appeared to have had a vasovagal episode No tonic-clonic activity. In ER he was found to have positive delta gap hypertensive with normal EKG. cardiology consulted from ER. Patient is being admitted to [facility] for NSTEMI Review of Systems 2 General: Reports: 10 or more systems reviewed and unremarkable except in HPI and below Medications/Allergies Home Medications Medication Instructions Recorded Confirmed Last Taken Type cock up splint #1 ea 07/12/21 12/23/23 Unknown Rx albuterol sulfate 90 mcg/actuation 2 puff inhalation Q4H PRN 12/23/23 12/23/23 Unknown History aerosol inhaler Shortness Of Breath Allergies Allergy/AdvReac Type Severity Reaction Status Date / Time Sulfa (Sulfonamide Allergy Rash Verified 07/11/23 14:07 Antibiotics) cillins Allergy unknown Uncoded 07/11/23 14:07 PFSH Acute 2 PFSH: Medical History (Updated 12/23/23 @ 18:21 by May Lopez MD) Asthma Cervical spondylosis with radiculopathy Family History Other Hypertension Social History Smoking and tobacco/nicotine status: current every day tobacco/nicotine user Alcohol intake: former Vitals/I&O/Wt Last Vital Signs Temp 98.7 F 12/23/23 14:00 Pulse 96 12/23/23 17:20 Resp 17 12/23/23 17:20 BP 172/119 12/23/23 17:20 Pulse Ox 98 12/23/23 17:20 O2 Del Method Room Air 12/23/23 14:00 Weight last 48 hrs Weight 74.843 kg Physical Exam 2 Narrative: He is alert awake oriented x 3 Chest clear to auscultation bilaterally Cardiovascular normal heart sounds Abdomen NAD Extremities no edema noted Data 12/24/23 03:27 12/24/23 03:27 CXR: My impression: No acute findings EKG 1: My Interpretation: SINUS RHYTHM POSSIBLE LEFT ATRIAL ENLARGEMENT [-0.1mV P-WAVE IN V1/V2] POSSIBLE LEFT VENTRICULAR HYPERTROPHY [VOLTAGE CRITERIA PLUS LAE OR QRS WIDENING] NONSPECIFIC T-WAVE ABNORMALITY Compared to ECG 12/23/2023 15:20:31 No significant changes A&P Assessment and plan (1) HTN (hypertension): (2) Non-ST elevation MO (NSTEMI): (3) Cervical spondylosis with radiculopathy: Plan Will continue with nitroglycerin drip and heparin drip for now Follow-up second set of troponins Follow-up cardiology in a.m. Continue albuterol MDI 2 puffs every 4 hours as needed for asthma. He is full code for now Cardiac carb consistent diet He is on IV heparin drip will continue same for DVT prophylaxis GI prophylaxis with IV pantoprazole 40 mg twice daily Attestations 2 Medical Necessity Statement*: Patient needs less than 2 days of continued hospitalization ,he has elevated troponins, And right-sided chest pain, admitted to rule out Nstemi Time Spent in Patient Care: 30 minutes Coding Level of Care Code Acute Code for [facility] Diagnoses HTN (hypertension) I10 Non-ST elevation MO (NSTEMI) I21.4 Cervical spondylosis with radiculopathy M47.22 Time Spent (min) 30
[2023-12-23 18:33] LABS: Partial Thromboplastin Time 32.7 SECONDS (23.9-36.7)
--- NOTE | 2023-12-23 19:58 | ECG_ITS ---
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 Measurements Intervals [place] Rate: 90 P: 34 MD: 129 QRS: 46 QRSD: 96 T: 71 QT: 382 QTc: 469 Interpretive Statements SINUS RHYTHM POSSIBLE LEFT ATRIAL ENLARGEMENT [-0.1mV P-WAVE IN V1/V2] POSSIBLE LEFT VENTRICULAR HYPERTROPHY [VOLTAGE CRITERIA PLUS LAE OR QRS WIDENING] NONSPECIFIC T-WAVE ABNORMALITY Compared to ECG 12/23/2023 15:20:31 No significant changes Electronically Signed On 12-23-2023 17:58:06 CDT by Kadei Henson M.D. [id number]
--- NOTE | 2023-12-23 20:23 | PC.NURSE ---
Report was given to Jenni ZHANG in [facility]. All questions and concerns were addressed at time of report.
[2023-12-23 21:04] LABS: Partial Thromboplastin Time 57.6 SECONDS (23.9-36.7)
[2023-12-23 21:20] LABS: Troponin 5 6HR 127.3 ng/L (0-15); Troponin 5 6HR Delta 74.3 ng/L (0-12)
[2023-12-24] VITALS (15 sets, daily range): BP systolic 116–158; BP diastolic 80–96; PULSE 72–100; RESP 16–53; TEMP 36.8–37.1; O2SAT 90–98
[2023-12-24 03:51] LABS: Basophils # 0.1 10^3/uL (0.0-0.1); Basophils % 0.5 %; Eosinophils # 0.2 10^3/uL (0.0-0.8); Eosinophils % 1.6 %; Hematocrit 44.6 % (37-53); Lymphocytes # 4.2 10^3/uL (0.8-4.8); Lymphocytes % 44.9 %; Mean Corpuscular HGB Conc 32.5 g/dL (30-55); Mean Corpuscular Hemoglobin 26.3 pg (27-33); Mean Corpuscular Volume 80.9 fl (82-101); Mean Platelet Volume 9.1 fL (7.4-10.4); Monocytes # 0.6 10^3/uL (0.2-0.9); Monocytes % 6.8 %; Neutrophils # 4.26 10^3/uL (1.8-7.7); Nucleated Red Blood Cells % 0 %; Platelet Count 287 10^3/cmm (157-399); Red Blood Count 5.51 10^6/uL (3.85-5.65); Red Cell Distribution Width 13.6 % (12.1-15.1); White Blood Count 9.27 10^3/uL (3.29-11.43)
[2023-12-24 04:15] LABS: Chol HDL Ratio 3.97 mg/dL (1.0-5.00); Cholesterol 123 mg/dL (0-200); HDL Cholesterol 31 mg/dL (60-100); LDL Cholesterol Calculated 50 mg/dL (50-129); LDL HDL Ratio 1.61 RATIO (0.00-3.22); Triglycerides 210 mg/dL (0-150)
[2023-12-24 04:17] LABS: Alanine Aminotransferase 20 U/L (0-41); Albumin Level 3.8 g/dL (3.5-5.2); Alkaline Phosphatase 125 U/L (40-130); Anion Gap 15.4 (5-19); Aspartate Amino Transferase 29 U/L (0-40); Blood Urea Nitrogen 9 mg/dL (6-20); Calcium 8.7 mg/dL (8.5-10.5); Carbon Dioxide 24 mmol/L (22-29); Chloride 97 mmol/L (98-107); Creatinine Clr Calc Pharmacy 104.5681; Globulin 2.6 g/dL (1.3-4.6); Glomerular Filtration Rate 80.8 mL/min (90-130); Glucose 127 mg/dL (65-115); Magnesium 2.1 mg/dL (1.7-2.3); Osmolality Calculated 276 mOsm/kg (285-295); Potassium 3.4 mmol/L (3.5-5.1); Sodium 133 mmol/L (136-145); Total Bilirubin 0.2 mg/dL (0.15-1.2); Total Protein 6.4 g/dL (6.6-8.7)
[2023-12-24 04:48] LABS: Partial Thromboplastin Time 48.3 SECONDS (23.9-36.7)
[2023-12-24] MEDS: heparin 5,000 unit/mL INJ 1 mL IV (05:07)
[2023-12-24] MEDS: pantoprazole 40 mg SDV IVP (05:09)
--- NOTE | 2023-12-24 08:20 | XACV_ITS ---
Exam Room: [facility] Ht: 175 cm Wt: 92 kg BSA: 2.14 m2 Gender: Male : 1980 Any Known Allergies: Penicillins Exam Priority: Routine Procedure(s): Procedure Description: Diagnostic procedure Procedure Description: Left Heart Catheterization Procedure Description: Left ventriculography Procedure Description: Coronary Angiography Diagnostic Cath Status: Urgent Diagnostic Findings * No significant disease noted in the Left Main, Left Anterior Descending, Right, or Circumflex coronary arteries. 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 * Coronary angiography shows right dominance. Conclusions 1. No significant disease noted in the Left Main, Left Anterior Descending, Right, or Circumflex coronary arteries. Recommendations * Aggressive risk factor modification. * Outpatient cardiology follow up in 4 weeks. Interventional RX Recommendation: medical therapy and/or counseling Diagnostic RX Recommendation: medical therapy and/or counseling Anticoagulation: Heparin Pressures Phase:Rest AO : 140 / 95 ( 113 ) @ 11:51:00 AM 130 / 82 ( 104 ) @ 11:59:00 AM 133 / 86 ( 108 ) @ 11:59:00 AM LV : 159 / -10 / 15 @ 11:58:00 AM 154 / -4 / 18 @ 11:59:00 AM 156 / 0 / 20 @ 11:59:00 AM Valves Phase:DefaultPhase AV : 24.0 @ 11:06:05 AM AV Mean Gradient: 25.0 @ 11:06:05 AM Clinical Evaluation EBL: 5mL-10mL Procedural Details Pre-Procedure Time Out. Identified patient by full name and date of as verbalized by the patient/guarantor. Does the consent match the physician's order: Yes. Accurate & Complete Informed Consent: Yes. Inpatient/Outpatient History & Physical on Chart: Yes. If H&P is completed, is and addenduem needed: No; If yes, is the addendum complete: N/A. Visualize and Verify Site with Patient/Guarantor: N/A. Relevant Radiology Images available: Yes. Pre-op teaching completed and patient verbalized understanding. The risks, benefits, and alternatives of sedation and/or procedure were discussed by physician. The patient agrees to continue. Procedure started. [facility] Clinical Fraility Score: 3: Managing Well. Jazz Musician Indications: ACS > 24 hours. Chest Pain Symptom Assessment: Atypical Angina. Correct patient, site and procedure confirmed by cath team. Current diagnosis: NSTEMI. PERRLA. Strong, equal hand silverware buffer bilaterally. Lungs clear x 5 lobes. IV Site on Arrival: 18 gauge in the right anticubital. IV Fluids: 0.9% NaCl at KVO. 0 mL infused prior to photographic laboratory technician. Oxygen started at 2liters/min via nasal canula. right groin was prepped with chloroprep then draped in the usual sterile fashion. right radial was prepped with chloroprep then draped in the usual sterile fashion. Baseline sample Acquired. HR: 0 BPM. Physician arrived. Physician scrubbed in. Immediate Pre-Procedure Time Out. Correct Patient: Yes; Correct Procedure: Yes; Correct Site: Yes; Correct Patient Position: Yes; Correct Supplies: Yes; Dried Flammable Prep: Yes; Blood Products Available: N/A;. Lidocaine 1% infiltrated to the right radial. Arterial access obtained. A 5 pakistani TIG catheter in over wire. Multiple views taken of right coronary artery. Catheter redirected to the LCA. Multiple views taken of left coronary artery. Catheter removed over the exchange wire. A 5 pakistani Angled Pig catheter in over wire. EDP Sample taken: LV 159/-11,15; HR: 78 BPM; SpO2: 92%. LV gram performed in PAPPAS @ 10 mL/second for a total of 30 mL. EDP Sample taken: LV 154/-5,18; HR: 77 BPM; SpO2: 91%. Pullback taken: LV 156/0,20; AO 130/82(104); Mean: 25mmHg, Peak to Peak: 24mmHg, SEP: 13sec/min; HR: 78 BPM; SpO2: 91%. Catheter removed over the exchange wire. A TR Band was successful obtaining hemostatsis at the Right Radial artery insertion site. Vital chart was stopped. Physician scrubbed out. Post Procedure: Pulses reassessed and unchanged. PERRLA. Strong, equal hand silverware buffer bilaterally. No VTE prophylaxis required. Medication's Wasted: Lidocaine 1% = 15 mL. Medication's Wasted: Nitro = 49.8 mg. Medication's Wasted: Other = Fentanyl 75mcg Versed 1 mg. Medication's Wasted: Heparin = 2500 units. Total IV fluids: 40 mL. Complications: None. Estimated blood loss: 5mL-10mL. Responsiveness - Normal response to verbal stimuli; alert and oriented, PERRLA. Airway - Unaffected, no intervention required; spontaneous ventilation. Circulation: W/N/L, pulses unchanged. Nausea/Vomiting: No. Procedure completed. Patient transferred by wheelchair to 1st floor. Access Site Site: Right Radial artery Sheath Size: 6 Fr Hemostasis Method: TR Band Hemostasis Success: Successful Procedure Medications Start: 10:43 AM Stop: 10:43 AM Medication: Versed Amount: 1 mg Route: I.V. Start: 10:45 AM Stop: 10:45 AM Medication: Fentanyl Amount: 25 mcg Route: I.V. Start: 10:49 AM Stop: 10:49 AM Medication: Nitrogylcerin Amount: 200 mcg Route: I.A. Start: 10:50 AM Stop: 10:50 AM Medication: Heparin Amount: 2500 units Route: I.V. I, the attending physician, have reviewed and verified all procedure medications. Yes, all medications given per verbal order History/Risk Factors Hypertension: Yes Dyslipidemia: No Peripheral Arterial Disease (PAD): No Myocardial Infarction (RI): No Obesity: No Renal Disease: No Tobacco Use: Current/Recent(w/in 1 year) Prior Interventions PCI: No CABG: No Valve Surgery: No Report Signatures Finalized by Kurt José MD on 12/29/2023 08:51 PM
--- NOTE | 2023-12-24 09:13 | PC.CHAP ---
Pastoral Care Encounter/Spiritual Assessment Type of Contact [] Declined motor coach bus driver visit [] Patient/Family/Request visit [] Outpatient visit [] Follow-up visit [] Physician referral [] Code/Alert [x] Routine visit [] Staff referral [] Actively dying [] Patient sleeping [] Family support [] [] Out of room [] Palliative care [] [] Receiving care in room [] Pre-surgical visit [] Trauma [] Long length of stay [] ICU visit [] Other: Relational/Emotional Strength [x] Patient feels connected with others/family/visitors/staff [] Distress [] Loneliness/isolation [] Abandonment Spirituality of Patient [x] Person of Trinh [] Attends Evangelical of their [place] [x] Believes in Prayer [] Reads Bible or Pentecostal materials [] There are Spiritual issues to be addressed Education Department Registrar Interventions [x] Prayer [x] Active listening [] Non-anxious presence [x] Spiritual/emotional support [] Crisis/trauma care [] Spiritual counseling [] Bereavement support [] Provided bereavement packet [] Provided Bible/devotional materials [] Provided toy/stuffed animal, coloring book to patient or family member [] Provided Communion [] Anointing/Pimento [] Salvation [x] Completed spiritual assessment [] Other: Impact on Illness or Injury [] Angry [] Fearful [] Anxious [] Often cries [] Exhaustion [] Unable to work [] Unable to attend presybeterian [] Unable to walk/stand [] Unable to read [] Unable to drive [] Unable to eat/drink [] Unable to sleep [] Unable to be with family [] Patient intubated [] Other: Summary Time spent with patient 5 min
[2023-12-24] MEDS: aspirin 325 mg Tablet PO (09:35)
[2023-12-24] MEDS: sodium chloride 0.9% 1,000 ML 50 ML IV (09:35)
[2023-12-24] MEDS: diphenhydrAMINE 50 mg Capsule PO (09:35)
--- NOTE | 2023-12-24 10:32 | P.CONIM_ITS ---
Providers/Reason For Consult 2 Consulting Physician/Specialty*: Kurt José MD/ Cardiology Reason for Consult*: Syncope/NSTEMI Requesting Physician: Dr Zhu Attending Physician: May Lopez MD Primary Care Provider: Dyllan Luque MD History of Present Illness History of Present Illness Lico Randall is a 43 year old male with no prior cardiac history presented to hospital with chest pain. Its mostly on the right side and substernal. He had 2 syncopal episodes as well. Troponins have trended up significantly from a baseline of 53-127 at 6 hours. EKG shows sinus rhythm with no significant ST-T wave changes. He has also experienced some shortness of breath. Review of Systems 2 Const: Denies: fever(s), chills or diaphoresis Card: Reports: chest pain and syncope; Denies: palpitations Resp: Denies: dyspnea GI: Denies: abdominal pain, nausea or vomiting : Denies: dysuria, urinary frequency or urinary urgency Musc: Denies: neck pain or back pain Skin/Breast: Denies: rash Medications/Allergies Home Medications Medication Instructions Recorded Confirmed Last Taken Type cock up splint #1 ea 07/12/21 12/23/23 Unknown Rx albuterol sulfate 90 mcg/actuation 2 puff inhalation Q4H PRN 12/23/23 12/23/23 Unknown History aerosol inhaler Shortness Of Breath Allergies Allergy/AdvReac Type Severity Reaction Status Date / Time Sulfa (Sulfonamide Allergy Rash Verified 07/11/23 14:07 Antibiotics) cillins Allergy unknown Uncoded 07/11/23 14:07 Current Medications Generic Name Dose Route Start Last Admin Trade Name Freq PRN Reason Stop Dose Admin Heparin Sodium (Porcine) 0 unit 12/23/23 16:58 12/24/23 05:07 Heparin 5,000 Unit/Ml Inj 1 Ml IV 1,500 unit PRN PRN Administration Heparin weight-base protocol Protocol Nitroglycerin/Dextrose 50 mg in 250 mls @ 0 mls/hr 12/23/23 17:00 12/24/23 00:06 Nitroglycerin Drip IV 10 mcg/min .Q0M PRETTY 3 mls/hr Titration Protocol Per Protocol Heparin Sodium/Sodium Chloride 25,000 unit in 500 mls @ 0 mls/hr 12/23/23 17:00 12/24/23 05:08 Heparin Drip IV 15.37 unit/kg/hr .Q0M PRETTY 23 mls/hr Titration Protocol Per Protocol Sodium Chloride 1,000 mls @ 50 mls/hr 12/24/23 08:20 12/24/23 09:35 Sodium Chloride 0.9% IV 12/25/23 04:19 50 mls/hr .Q20H ONE Administration Pantoprazole Sodium 40 mg 12/23/23 18:30 12/24/23 05:09 Pantoprazole 40 Mg Sdv IVP 40 mg Q12H PRETTY Administration PFSH Acute 2 PFSH: Medical History Asthma Cervical spondylosis with radiculopathy Family History Other Hypertension Social History Smoking and tobacco/nicotine status: current every day tobacco/nicotine user Alcohol intake: former Vitals/I&O/Wt Last Vital Signs Temp 98.7 F 12/24/23 07:50 Pulse 76 12/24/23 07:50 Resp 18 12/24/23 07:50 BP 137/92 12/24/23 07:50 Pulse Ox 98 12/24/23 07:50 O2 Del Method Room Air 12/24/23 07:50 12/23/23 12/24/23 12/24/23 22:59 06:59 14:59 Intake Total 14.25 / 14.25 858.525 / 872.775 Balance 14.25 / 14.25 858.525 / 872.775 Weight last 48 hrs Weight 202 lb 14.4 oz Weight 203 lb Weight 165 lb Physical Exam 2 Narrative: GENERAL: Patient is alert, awake and oriented x3. [] NECK: No jugular vein distension. [] HEENT: No cyanosis. No icterus. No pallor. [] HEART: Regular S1 and S2. No murmur, rub or gallop. [] LUNGS: Clear to auscultate bilaterally. [] CENTRAL NERVOUS SYSTEM: Grossly nonfocal. [] EXTREMITIES: Lower extremities with no edema bilaterally Data 12/24/23 03:27 12/24/23 03:27 A&P Assessment and plan (1) Non-ST elevation NE (NSTEMI): (2) HTN (hypertension): (3) Cervical spondylosis with radiculopathy: Plan Patient has presented with chest pain and symptoms that have both typical and atypical features. Troponins have trended up significantly. He also had 2 syncopal episodes. Will proceed with coronary angiogram with possible PCI. Risks and benefits of procedure have been discussed. He understands them and want to proceed. Continue anticoagulation with heparin. CTA shows possible small sized non-occlusive emboli. Will likely need anticoagulation as outpatient as well ECHO ordered Thank you for involving us with care of this patient. We will continue to follow. Please call with questions. Consult Attestations 2 Medical Necessity Statement: Care expected to cross 2 midnights. Coding Level of Care Code Acute Code for [facility] Diagnoses Non-ST elevation NE (NSTEMI) I21.4 HTN (hypertension) I10 Cervical spondylosis with radiculopathy M47.22
--- NOTE | 2023-12-24 10:37 | PC.NURSE ---
Patient left the floor to lab assistant at 1035.
--- NOTE | 2023-12-24 10:41 | W.PM.OPSUD ---
Surgery/Procedure H&P Update DATE OF PROCEDURE: December 24, 2023 DATE H&P PERFORMED: 12/24/23 H&P UPDATE INFORMATION: I have reviewed H&P completed within last 30 days, I have examined patient prior to procedure and No changes to prior documentation PREOP DIAGNOSIS: NSTEMI PRIMARY INDICATION FOR PROCEDURE: NSTEMI PLANNED PROCEDURE: Left heart cath with possible percutaneous coronary intervention PATIENT REASSESSED PRIOR TO SEDATION, WITH NO CHANGE NOTED: Yes PHYSICAL EXAM: alert, oriented x 3, clear to auscultation bilaterally and regular rate & rhythm AIRWAY EVAL/ANESTHESIA PLAN: normal airway, ASA III, Local Anesthesia, Risks, benefits & alternatives of sedation and/or procedure discussed and Patient agrees to continue as planned ADDITIONAL INFORMATION: Moderate sedation
--- NOTE | 2023-12-24 11:10 | SUR.EXTENDED ---
Received the patient back from the tutorial laboratory supervisor via wheelchair s/p Diagnostic [facility]. Patient ambulated to the cot without difficulty. A & 0 x 3. monitoring coordinator placed and vital signs obtained. TR band intact to the right wrist. No bleeding or hematoma noted. Palpable radial pulse. No concerns voiced at this time. Will transfer back to [facility] after recovery period.
--- NOTE | 2023-12-24 11:51 | PC.NURSE ---
Patient returned from lab nurse via a wheelchair with a TR-band.
--- NOTE | 2023-12-24 11:58 | USCV_ITS ---
Lico Randall Age: 43 Gender: M : 1980 Exam Date: 12/24/2023 13:28 Ordering Phys: Kurt José M.D ([email or web address]) Technologist: [place] [facility] [place]: nstemi BP: 123 / 73 HR: 81 Rhythm: Sinus Technical Quality: Adequate MEASUREMENTS (Male / Female) Normal Values 2D ECHO LV Diastolic Diameter PLAX 5.7 cm 4.2 - 5.9 / 3.9 - 5.3 cm IVS Diastolic Thickness 1.1 cm 0.6 - 1.0 / 0.6 - 0.9 cm IVS Systolic Thickness 2.0 cm LVPW Diastolic Thickness 1.2 cm 0.6 - 1.0 / 0.6 - 0.9 cm LVPW Systolic Thickness 1.5 cm LVOT Diameter 2.1 cm LV Ejection Fraction 2D Teich 55.5 % LV Ejection Fraction MOD 2C 54.1 % LV Ejection Fraction 2C AL 55.1 % LA Diameter 3.0 cm RA Systolic Volume 4C AL 27.1 ml RA Systolic Volume 4C MOD 26.1 ml Aorta at Sinotubular Diameter 2.5 cm M-MODE LA Ao Ratio MM 1.3 AV Cusp Separation MM 1.8 cm DOPPLER AV Peak Velocity 202.0 cm/s LVOT Peak Velocity 81.0 cm/s AV Area Cont Eq vti 1.6 cm squared AV Area Cont Eq pk 1.3 cm squared MV Peak Velocity 106.0 cm/s MV Area PHT 4.7 cm squared Mitral E to A Ratio 1.3 TV Peak Velocity 171.5 cm/s TR Peak Velocity 176.0 cm/s TR Peak Gradient 12.4 mmHg TV Peak E Velocity 93.0 cm/s Right Atrial Pressure 3.0 mmHg Pulmonary Artery Systolic Pressu 15.4 mmHg PV Peak Velocity 95.0 cm/s FINDINGS Left Ventricle Left ventricle is normal in size. LV systolic function is normal with EF of 50-55%. No regional wall motion abnormalities are seen. Right Ventricle Normal in size and function Right Atrium Normal in size Left Atrium Normal in size Mitral Valve Structurally normal mitral valve. Trace mitral regurgitation. Aortic Valve Structurally normal aortic valve. No significant stenosis or regurgitation. Tricuspid Valve Insufficient TR jet to evaluate RVSP. Pulmonic Valve Not well visualized Pericardium Normal Aorta Normal in size IVC Appears to be normal CONCLUSIONS LV systolic function is normal with EF of 50 to 55%. Trace mitral regurgitation. No comparison studies are available Kurt José MD (Electronically Signed) Final Date: 24 December 2023 17:00 S
--- NOTE | 2023-12-24 12:02 | PM.MISC ---
Miscellaneous Note Purpose of Documentation: Brief note Note: No significant coronary artery disease noted on left heart cath. LV gram shows normal LV systolic function Awaiting echocardiogram. Recommendations: Patient is stable to be discharged from cardiac standpoint. Can be started on eliquis 5mg BID for small sized non occlusive pulmonary emboli.
--- NOTE | 2023-12-24 13:51 | PM.DCS ---
Discharge Providers Date of Admission: 12/23/23 17:13 Date of Discharge: December 24, 2023 Attending Provider at Admission: May Lopez MD Attending Provider at Discharge: May Lopez MD Primary Care Provider: Dyllan Luque MD Diagnoses at Discharge Discharge Diagnosis (1) Non-ST elevation ID (NSTEMI): Status: Acute (2) HTN (hypertension): Status: Acute (3) Cervical spondylosis with radiculopathy: Status: Acute Reason for Visit Reason for Visit: chest pain Brief History: Lico Randall is a 43 year old male with no significant past medical history but current smoker presented with complaint of chest pain. 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 Chest pain is reproducible with palpation and deep inspiration patient reports having passed out a couple of times since this started. While he was in the exam room he was hyperventilating and twice passed out appeared to have had a vasovagal episode No tonic-clonic activity. In ER he was found to have positive delta gap hypertensive with normal EKG. cardiology consulted from ER. Patient is being admitted to [facility] for NSTEMI Hospital Course Hospital Course Since the troponins were trending up with atypical chest pain he underwent cardiac cath which showed no significant coronary artery disease. He also had a CT chest done which showed small nonocclusive pulmonary embolus. Given his uncontrolled blood pressure during the hospital stay we will start him on p.o. metoprolol 50 mg daily. He is hemodynamically stable and ready to be discharged home Follow-up in cardiology clinic in 1 week. Physical Exam Narrative: GENERAL: Patient is alert, awake and oriented x3. [] NECK: No jugular vein distension. [] HEENT: No cyanosis. No icterus. No pallor. [] HEART: Regular S1 and S2. No murmur, rub or gallop. [] LUNGS: Clear to auscultate bilaterally. [] CENTRAL NERVOUS SYSTEM: Grossly nonfocal. [] EXTREMITIES: Lower extremities with no edema bilaterally Discharge Data Studies Completed and Pending Completed Studies During Hospitalization Category Date Time Status CT angio chest PE protcl [id number] Stat Cat Scan 12/23/23 17:12 Completed XR chest 1V portable [id number] Stat Exams 12/23/23 13:58 Completed Pending at discharge Category Date Time Status FRUIT ROOM HAND request for service Routine Exams 12/24/23 08:20 Taken Platelet Count Q2D Lab 12/25/23 04:00 Ordered Platelet Count Q2D Lab 12/27/23 04:00 Ordered CV. echo complete* [id number] Routine Ultrasound 12/24/23 11:58 Taken Radiology Impressions Chest X-Ray 12/23/23 13:58 IMPRESSION: No acute findings. Chest CTA 12/23/23 17:12 IMPRESSION: 1. Small nonocclusive emboli of indeterminate age in a few lingular pulmonary arterial branches, possibly residual sequelae of chronic or subacute embolism. No right-sided pulmonary emboli identified. 2. Mild paraseptal emphysema. 3. Small amount of wall thrombus in the aortic arch/descending aortic junction COMMENT: THIS REPORT CONTAINS FINDINGS THAT MAY BE CRITICAL TO PATIENT CARE. The exam findings were verbally communicated by me to DR. Petersen via telephone conference at 6:41 PM CDT on 12/23/2023. The findings were acknowledged and understood. Laboratory Results WBC 9.27 10^3/uL (3.29-11.43) 12/24/23 03:27 RBC 5.51 10^6/uL (3.85-5.65) 12/24/23 03:27 Hgb 14.50 g/dL (11.27-16.99) 12/24/23 03:27 Hct 44.6 % (37-53) 12/24/23 03:27 MCV 80.9 fl (82-101) L 12/24/23 03:27 MCH 26.3 pg (27-33) L 12/24/23 03:27 MCHC 32.5 g/dL (30-55) 12/24/23 03:27 RDW 13.6 % (12.1-15.1) 12/24/23 03:27 Plt Count 287 10^3/cmm (157-399) 12/24/23 03:27 MPV 9.1 fL (7.4-10.4) 12/24/23 03:27 Neut % (Auto) 46.0 % 12/24/23 03:27 Lymph % (Auto) 44.9 % 12/24/23 03:27 [place] % (Auto) 6.8 % 12/24/23 03:27 Eos % (Auto) 1.6 % 12/24/23 03:27 Baso % (Auto) 0.5 % 12/24/23 03:27 Neut # (Auto) 4.26 10^3/uL (1.8-7.7) 12/24/23 03:27 Lymph # (Auto) 4.2 10^3/uL (0.8-4.8) 12/24/23 03:27 [place] # (Auto) 0.6 10^3/uL (0.2-0.9) 12/24/23 03:27 Eos # (Auto) 0.2 10^3/uL (0.0-0.8) 12/24/23 03:27 Baso # (Auto) 0.1 10^3/uL (0.0-0.1) 12/24/23 03:27 Nucleated RBC % (auto) 0 % 12/24/23 03: Nucleated RBCs # 0.0 /100WBC 12/24/23 03:27 PT 12.40 SECONDS (12.1-14.9) 12/23/23 14:11 INR 0.90 (0.8-1.2) 12/23/23 14:11 APTT 48.3 SECONDS (23.9-36.7) H 12/24/23 03:27 Sodium 133 mmol/L (136-145) L 12/24/23 03:27 Potassium 3.4 mmol/L (3.5-5.1) L 12/24/23 03:27 Chloride 97 mmol/L (98-107) L 12/24/23 03:27 Carbon Dioxide 24 mmol/L (22-29) 12/24/23 03:27 Anion Gap 15.4 (5-19) 12/24/23 03:27 BUN 9 mg/dL (6-20) 12/24/23 03:27 Creatinine 1.0 mg/dL (0.7-1.2) 12/24/23 03:27 GFR Calculation 80.8 mL/min (90-130) L 12/24/23 03:27 Glucose 127 mg/dL (65-115) H 12/24/23 03:27 Calculated Osmolality 276 mOsm/kg (285-295) L 12/24/23 03:27 Calcium 8.7 mg/dL (8.5-10.5) 12/24/23 03:27 Magnesium 2.1 mg/dL (1.7-2.3) 12/24/23 03:27 Total Bilirubin 0.2 mg/dL (0.15-1.2) 12/24/23 03:27 AST 29 U/L (0-40) 12/24/23 03:27 ALT 20 U/L (0-41) 12/24/23 03:27 Alkaline Phosphatase 125 U/L (40-130) 12/24/23 03:27 Troponin T Baseline 53 ng/L (0-15) H 12/23/23 14:11 Troponin T 120 Minute 70.01 ng/L (0-15) H 12/23/23 16:27 Delta Troponin T 17.01 ABS# (0-10) H* 12/23/23 16:27 Troponin T Hi Sens 6Hr 127.3 ng/L (0-15) H 12/23/23 20:37 Troponin T Hi Sens 6Hr Delta 74.3 ng/L (0-12) H* 12/23/23 20:37 Total Protein 6.4 g/dL (6.6-8.7) L 12/24/23 03:27 Albumin 3.8 g/dL (3.5-5.2) 12/24/23 03:27 Globulin 2.6 g/dL (1.3-4.6) 12/24/23 03:27 Triglycerides 210 mg/dL (0-150) H 12/24/23 03:27 Cholesterol 123 mg/dL (0-200) 12/24/23 03:27 LDL Cholesterol, Calc 50 mg/dL (50-129) 12/24/23 03:27 HDL Cholesterol 31 mg/dL (60-100) L 12/24/23 03:27 LDL/HDL Ratio 1.61 RATIO (0.00-3.22) 12/24/23 03:27 Cholesterol/HDL Ratio 3.97 mg/dL (1.0-5.00) 12/24/23 03:27 Vitals Last Vital Signs Temp 98.7 F 12/24/23 07:50 Pulse 100 12/24/23 12:00 Resp 24 H 12/24/23 12:00 BP 156/96 12/24/23 12:00 Pulse Ox 96 12/24/23 12:00 O2 Del Method Room Air 12/24/23 12:00 Discharge Plan Discharge Patient Disposition: Home Condition: Stable Prescriptions: New Toprol XL 50 mg tablet extended release 24 hr 50 mg PO DAILY Qty: 30 0RF Eliquis 5 mg tablet 5 mg PO BID Qty: 60 0RF Continued albuterol sulfate 90 mcg/actuation HFA aerosol inhaler 2 puff INHALATION Q4H PRN (Reason: Shortness Of Breath) Discontinued (DME) cock up splint See Rx Instructions .Route .MEDSUPPLY Qty: 1 0RF Rx Instructions: As directed Discharge Orders: Discharge Order (Routine); Ordered 12/24/23 Ordered By: May Lopez Referrals: Daniella Freedman FNP [Nurse Practitioner] - 01/06/24 3:00 pm Dyllan Luque MD [Primary Care Provider] - 12/30/23 10:30 am Discharge Diet: Low Salt Discharge Activity: Resume usual activity Patient Instructions: Metoprolol (By mouth) (Lopressor, Toprol XL), Apixaban (By mouth) (Eliquis), Hypertension (DC), Heart Catheterization (DC), Opioid Safety, Post Angiogram Home Care Instructions Discharge Attestations Time Spent in Discharge Care*: less than 30 min Time Spent in Smoking Cessation: 10 minutes Quality Metrics Clinical Quality Measures [ No reported AMI, CVA or VTE this stay] Coding Level of Care Code Acute Code for [facility] Fwd Diagnoses Non-ST elevation ID (NSTEMI) I21.4 HTN (hypertension) I10 Cervical spondylosis with radiculopathy M47.22 Time Spent (min) 20
--- NOTE | 2023-12-24 16:17 | PC.NURSE ---
Patient had a TR-band from label press operator. Air was removed from the TR-band as follows: 2ml's at 1245, 2ml's at 1308, 2ml's at 1415, 2ml's at 1430, 2ml's at 1445, 2ml's at 1515, 2ml's at 1530, 2ml's at 1600. TR-band off at 1615. No hematoma noted. Dressing of 2x2 and tegaderm was applied. Patient tolerated well.
== END 2023-12-24 17:09 | disposition home or self-care (01) ==
LOC: ER 18:25 → CSU 18:59
PROVIDERS: Emergency Medicine; Internal Medicine; Admitting Provider Internal Medicine; Emergency Provider Family Medicine; PCP Family Medicine; Visit Provider Internal Medicine
DX: I21.4 Non-ST elevation (NSTEMI) myocardial infarction (principal); I10 Essential (primary) hypertension; M47.22 Other spondylosis with radiculopathy, cervical region; I26.99 Other pulmonary embolism without acute cor pulmonale; F17.200 Nicotine dependence, unspecified, uncomplicated
CPT/HCPCS: 36415; 71045; 71275; 80053; 80061; 83735; 84484; 85025; 85610; 85730; 93005; 93306; 93458; 96374; 96375; 99152; 99153; 99285; C1769; C1887; C1894; C9113; G0378; J1644; J2250; J2270; J2405; J3010; J3490; J7030; Q0163; Q9967

== ENCOUNTER 2023-12-26 21:50 | Emergency (ER) | payer BC, SELFPAY ==
[2023-12-26 21:52] VITALS: BP 185/126; PULSE 83; RESP 22; TEMP 36.8; O2SAT 100; BMI 29.5
--- NOTE | 2023-12-26 21:54 | ECG_ITS ---
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 Measurements Intervals [place] Rate: 83 P: 40 VA: 111 QRS: 67 QRSD: 102 T: 50 QT: 378 QTc: 445 Interpretive Statements SINUS RHYTHM WITH SHORT VA INTERVAL POSSIBLE LEFT ATRIAL ENLARGEMENT [-0.1mV P-WAVE IN V1/V2] POSSIBLE LEFT VENTRICULAR HYPERTROPHY [VOLTAGE CRITERIA PLUS LAE OR QRS WIDENING] NONSPECIFIC T-WAVE ABNORMALITY Compared to ECG 12/23/2023 17:29:59 Short VA interval now present T-wave abnormality still present Electronically Signed On 12-27-2023 17:02:34 CDT by Kurt José M.D. [id number]
--- NOTE | 2023-12-26 21:56 | XRR_ITS ---
PROCEDURE INFORMATION: Exam: XR Chest Exam date and time: 12/26/2023 10:00 PM Age: 43 years old Clinical indication: Left-sided; Patient HX: C/O left sided chest pain TECHNIQUE: Imaging protocol: Radiologic exam of the chest. Views: 1 view. COMPARISON: CT angio chest PE protcl [id number] 12/23/2023 5:40 PM FINDINGS: Lungs: Unremarkable. No consolidation. Pleural spaces: Unremarkable. No pleural effusion. No pneumothorax. Heart/Mediastinum: Unremarkable. No cardiomegaly. Bones/joints: Unremarkable. XR/XR chest 1V portable [id number] IMPRESSION: No acute findings.
--- NOTE | 2023-12-26 21:57 | ED_ITS ---
HPI - Chest Pain 2 General: Chief Complaint: Chest Pain Stated Complaint: Chest Pain Time Seen by Provider: 12/26/23 21:56 History of Present Illness: Patient presents to the ER with complaints of left chest pain. Patient stated he was lying in bed and when he started to roll over he rolled over on his chest and started immediately having sharp pain is stabbing and has not let up. Patient says been going on a couple hours now. Patient denies any shortness of breath. Patient does not have a cardiac history other than within the last week he was admitted for for chest pain and elevated troponins and had a cardiac cath and was negative. They did find that he had PEs and patient was started on Eliquis at that time. Patient says he got his prescription and has been taking it. Review of Systems 2 General: Reports: 10 or more systems reviewed and unremarkable except in HPI and below PFSH ED 2 PFSH: Medical History Asthma Cervical spondylosis with radiculopathy Family History Other Hypertension Social History Smoking and tobacco/nicotine status: current every day tobacco/nicotine user Alcohol intake: former Physical Exam 2 Const: COMMON NORMALS: no acute distress, average body habitus, patient oriented x3, no limitations, healthy appearing, alert and well nourished HENMT: COMMON NORMALS: normocephalic, atraumatic, hearing grossly normal bilaterally, external ears normal, Normal external nose present, moist oral mucous membranes and oropharynx normal HEAD & SCALP: normocephalic and atraumatic NOSE: Normal external nose present EXTERNAL EAR: Yes external ears normal Neck/C-Spine: COMMON NORMALS: no JVD Chest: COMMONS NORMALS: normal inspection of the chest; negative for normal palpation of entire chest wall (Palpation of the left lateral chest wall reproduces the pain) Resp: COMMON NORMALS: normal respiratory effort, No retractions, No use of accessory muscles and clear to auscultation bilaterally AUSCULTATION: clear to auscultation bilaterally Cardio: COMMON NORMALS: no JVD, regular rate, regular rhythm, S1 normal heart sound present, S2 normal heart sound present, No gallops present (Cardio), No clicks present (Cardio), No murmurs present (Cardio) and No rub (Cardio) R ATE: regular rate RHYTHM: regular rhythm HEART SOUNDS: S1 normal heart sound present and S2 normal heart sound present GI: COMMON NORMALS: Normal to inspection, nondistended, normoactive bowel sounds present, Soft to palpation, non-tender and No hepatosplenomegaly present PALPATION: Yes Soft to palpation and Yes No hepatosplenomegaly present Neuro: COMMON NORMALS: patient oriented x3 SENSORIUM/ORIENTATION: Yes alert Course 2 Vital Signs: Vital signs: Vital Signs Temperature 98.2 F 12/26/23 21:52 Pulse Rate 67 12/26/23 23:46 Respiratory Rate 20 H 12/26/23 23:46 Blood Pressure 155/105 12/26/23 23:46 Pulse Oximetry 95 12/26/23 23:46 MDM - Chest Pain Medical Decision Making Patient presented with chest pain and was worked up in a standard chest pain fashion with serial EKGs, enzymes and chest x-ray, all of which was essentially negative. Patient troponins were elevated at 162 and approximately 164 through our however with these being stable and these being elevated secondary to his recent enzymes and angiogram done approximately 2 days ago and after given the patient Toradol he was pain-free I do not think if these are significant for cardiac involvement. I think it is more chest wall pain. These results was explained to the patient who agreed. Differential Diagnosis Unlikely acute massive pulmonary embolism, acute respiratory failure, acute myocardial infarction, cardiac arrest or sudden cardiac Medical Records I reviewed the patient's medical records. Lab Data I reviewed the patient's lab results. 12/26/23 21:59 12/26/23 21:59 Radiology Impressions Chest X-Ray 12/26/23 21:56 IMPRESSION: No acute findings. Laboratory Results WBC 11.40 10^3/uL (3.29-11.43) 12/26/23 21:59 RBC 5.92 10^6/uL (3.85-5.65) H 12/26/23 21:59 Hgb 15.80 g/dL (11.27-16.99) 12/26/23 21:59 Hct 48.2 % (37-53) 12/26/23 21:59 MCV 81.4 fl (82-101) L 12/26/23 21:59 MCH 26.7 pg (27-33) L 12/26/23 21:59 MCHC 32.8 g/dL (30-55) 12/26/23 21:59 RDW 13.5 % (12.1-15.1) 12/26/23 21:59 Plt Count 323 10^3/cmm (157-399) 12/26/23 21:59 MPV 9.0 fL (7.4-10.4) 12/26/23 21:59 Neut % (Auto) 53.8 % 12/26/23 21:59 Lymph % (Auto) 36.8 % 12/26/23 21:59 [place] % (Auto) 6.9 % 12/26/23 21:59 Eos % (Auto) 1.8 % 12/26/23 21:59 Baso % (Auto) 0.5 % 12/26/23 21:59 Neut # (Auto) 6.12 10^3/uL (1.8-7.7) 12/26/23 21:59 Lymph # (Auto) 4.2 10^3/uL (0.8-4.8) 12/26/23 21:59 [place] # (Auto) 0.8 10^3/uL (0.2-0.9) 12/26/23 21:59 Eos # (Auto) 0.2 10^3/uL (0.0-0.8) 12/26/23 21:59 Baso # (Auto) 0.1 10^3/uL (0.0-0.1) 12/26/23 21:59 Nucleated RBC % (auto) 0 % 12/26/23 21:59 Nucleated RBCs # 0.0 /100WBC 12/26/23 21:59 Sodium 135 mmol/L (136-145) L 12/26/23 21:59 Potassium 3.7 mmol/L (3.5-5.1) 12/26/23 21:59 Chloride 97 mmol/L (98-107) L 12/26/23 21:59 Carbon Dioxide 24 mmol/L (22-29) 12/26/23 21:59 Anion Gap 17.7 (5-19) 12/26/23 21:59 BUN 10 mg/dL (6-20) 12/26/23 21:59 Creatinine 0.9 mg/dL (0.7-1.2) 12/26/23 21:59 GFR Calculation 91.3 mL/min (90-130) 12/26/23 21:59 Glucose 124 mg/dL (65-115) H 12/26/23 21:59 Calculated Osmolality 280 mOsm/kg (285-295) L 12/26/23 21:59 Calcium 9.2 mg/dL (8.5-10.5) 12/26/23 21:59 Total Bilirubin 0.2 mg/dL (0.15-1.2) 12/26/23 21:59 AST 25 U/L (0-40) 12/26/23 21:59 ALT 25 U/L (0-41) 12/26/23 21:59 Alkaline Phosphatase 137 U/L (40-130) H 12/26/23 21:59 Troponin T Baseline 162 ng/L (0-15) H* 12/26/23 21:59 Troponin T 120 Minute 159.8 ng/L (0-15) H 12/26/23 23:37 Delta Troponin T -2.2 ABS# (0-10) L 12/26/23 23:37 Total Protein 6.9 g/dL (6.6-8.7) 12/26/23 21:59 Albumin 4.4 g/dL (3.5-5.2) 12/26/23 21:59 Globulin 2.5 g/dL (1.3-4.6) 12/26/23 21:59 All radiology interpretation(s) finalized by discharge Critical Care Time 2 Critical Care Time: Attestation: Similar to previous EKGs done on 12/23/2023 Discharge Plan Discharge Patient Disposition: Home Clinical Impression: Acute chest wall pain Condition: Stable Prescriptions: New meloxicam 7.5 mg tablet 7.5 mg PO .Twice daily Qty: 14 0RF No Action albuterol sulfate 90 mcg/actuation HFA aerosol inhaler 2 puff INHALATION Q4H PRN (Reason: Shortness Of Breath) Toprol XL 50 mg tablet extended release 24 hr 50 mg PO DAILY Qty: 30 0RF Eliquis 5 mg tablet 5 mg PO BID Qty: 60 0RF Discharge Orders: Discharge ED (Routine); Ordered 12/27/23 Ordered By: Bryn Telles Referrals: Dyllan Luque MD [Primary Care Provider] - 1 week Patient Instructions: Chest Pain - Chest Wall Activity Restrictions/Additional Instructions: Thank you for choosing [facility] for your healthcare needs today. Please realize that you were seen in the emergency department and that we are providing you with an emergency medical screening exam and this may not be a complete and all exclusive of all testing and/or medical workup we may need to determine your element or severity of your illness. It is very important that you follow-up as instructed with your primary care provider or specialist for the additional evaluation and to discuss your medical treatment plan. You may return to the emergency department should you have concerns or if your condition changes or worsens in any way. Coding Level of Care Code ED Supervisor S[employer]uric [employer] Plant for Leroy Vigil
[2023-12-26 22:04] LABS: Basophils # 0.1 10^3/uL (0.0-0.1); Basophils % 0.5 %; Eosinophils # 0.2 10^3/uL (0.0-0.8); Eosinophils % 1.8 %; Hematocrit 48.2 % (37-53); Lymphocytes # 4.2 10^3/uL (0.8-4.8); Lymphocytes % 36.8 %; Mean Corpuscular HGB Conc 32.8 g/dL (30-55); Mean Corpuscular Hemoglobin 26.7 pg (27-33); Mean Corpuscular Volume 81.4 fl (82-101); Monocytes # 0.8 10^3/uL (0.2-0.9); Monocytes % 6.9 %; Neutrophils # 6.12 10^3/uL (1.8-7.7); Neutrophils % 53.8 %; Nucleated Red Blood Cells % 0 %; Platelet Count 323 10^3/cmm (157-399); Red Blood Count 5.92 10^6/uL (3.85-5.65); Red Cell Distribution Width 13.5 % (12.1-15.1)
[2023-12-26] MEDS: ketorolac 30 mg/mL INJ IVP (22:05)
[2023-12-26 22:06] VITALS: BP 183/116; PULSE 80; RESP 18; O2SAT 98
[2023-12-26 22:29] LABS: Troponin(5th) Baseline 162 ng/L (0-15)
[2023-12-26 22:30] VITALS: BP 163/108; PULSE 71; RESP 18; O2SAT 97
[2023-12-26 22:43] LABS: Alanine Aminotransferase 25 U/L (0-41); Albumin Level 4.4 g/dL (3.5-5.2); Alkaline Phosphatase 137 U/L (40-130); Blood Urea Nitrogen 10 mg/dL (6-20); Calcium 9.2 mg/dL (8.5-10.5); Carbon Dioxide 24 mmol/L (22-29); Chloride 97 mmol/L (98-107); Creatinine Clr Calc Pharmacy 115.3886; Globulin 2.5 g/dL (1.3-4.6); Glomerular Filtration Rate 91.3 mL/min (90-130); Glucose 124 mg/dL (65-115); Osmolality Calculated 280 mOsm/kg (285-295); Sodium 135 mmol/L (136-145); Total Bilirubin 0.2 mg/dL (0.15-1.2); Total Protein 6.9 g/dL (6.6-8.7)
[2023-12-26 22:44] LABS: Anion Gap 17.7 (5-19); Aspartate Amino Transferase 25 U/L (0-40); Potassium 3.7 mmol/L (3.5-5.1)
[2023-12-26 23:00] VITALS: BP 166/112; PULSE 71; RESP 20; O2SAT 94
--- NOTE | 2023-12-26 23:42 | ECG_ITS ---
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 Measurements Intervals [place] Rate: 66 P: 39 AR: 126 QRS: 69 QRSD: 102 T: 62 QT: 433 QTc: 457 Interpretive Statements SINUS RHYTHM POSSIBLE LEFT ATRIAL ENLARGEMENT [-0.1mV P-WAVE IN V1/V2] POSSIBLE LEFT VENTRICULAR HYPERTROPHY [VOLTAGE CRITERIA PLUS LAE OR QRS WIDENING] Compared to ECG 12/23/2023 17:29:59 T-wave abnormality no longer present Electronically Signed On 12-27-2023 17:08:15 CDT by Kurt José M.D. [id number]
[2023-12-26 23:46] VITALS: BP 155/105; PULSE 67; RESP 20; O2SAT 95
[2023-12-27 00:16] LABS: Troponin 5 2HR 159.8 ng/L (0-15); Troponin 5 2HR Delta -2.2 ABS# (0-10)
== END 2023-12-27 00:33 | disposition home or self-care (01) ==
PROVIDERS: Emergency Provider Emergency Medicine; PCP Family Medicine
DX: R07.89 Other chest pain (principal); Z79.01 Long term (current) use of anticoagulants; Z72.0 Tobacco use
CPT/HCPCS: 71045; 80053; 84484; 85025; 93005; 96374; 99285; J1885

== ENCOUNTER 2024-05-12 13:15 | Emergency (ER) | payer BC, SELFPAY ==
[2024-05-12] VITALS (7 sets, daily range): BP systolic 127–157; BP diastolic 84–101; PULSE 55–62; RESP 18–21; TEMP 36.3; O2SAT 94–98
--- NOTE | 2024-05-12 13:18 | XR_ITS ---
WS: [id number] Exam: XR chest 1V portable [id number] Date/Time of Exam: 05/12/2024 1:18 PM Reason For Exam: cp Comparison 12/26/2023. The lungs are clear and fully expanded. Normal cardiomediastinal silhouette. No pleural effusions. [place] structures are intact. XR/XR chest 1V portable [id number] IMPRESSION: 1. No acute cardiopulmonary finding.
--- NOTE | 2024-05-12 13:37 | ECG_ITS ---
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 Measurements Intervals [place] Rate: 63 P: 42 IA: 127 QRS: 64 QRSD: 99 T: 61 QT: 417 QTc: 428 Interpretive Statements SINUS RHYTHM POSSIBLE LEFT VENTRICULAR HYPERTROPHY [VOLTAGE CRITERIA PLUS LAE OR QRS WIDENING] Compared to ECG 05/12/2024 13:18:01 No significant changes Electronically Signed On 05-12-2024 13:45:54 CDT by Kurt José M.D. [id number]
--- NOTE | 2024-05-12 13:43 | ED_ITS ---
HPI - Chest Pain 2 General: Chief Complaint: Chest Pain Stated Complaint: CP PCP sent Time Seen by Provider: 05/12/24 13:39 Source: patient Mode of arrival: ambulatory Limitations: no limitations History of Present Illness: 44-year-old male states history of havекатерина cadena some chest pain last night states been sharp pressure-like pain since she has some mild dyspnea denies any nausea or diaphoresis states over here by Vijay Luz he was given nitro his pain is now resolved. Patient had been admitted in December and had a small PE is on Eliquis he had a coronary cath and that was negative. He denies any cough or fever Associated symptoms: Deny abdominal pain, dyspnea, fever(s), nausea or vomiting Related Data Home Medications Medication Instructions Recorded Confirmed albuterol sulfate 90 mcg/actuation 2 puff inhalation Q4H PRN 12/23/23 05/12/24 aerosol inhaler Shortness Of Breath isosorbide mononitrate 60 mg 60 mg PO DAILY 05/12/24 05/12/24 tablet,extended release 24 hr losartan 25 mg tablet 25 mg PO DAILY 05/12/24 05/12/24 Previous Rx's Medication Instructions Recorded apixaban 5 mg tablet (Eliquis) 5 mg PO BID #60 tabs 12/24/23 isosorbide mononitrate 30 mg 30 mg PO DAILY #30 tabs 01/06/24 tablet,extended release 24 hr metoprolol succinate 100 mg 100 mg PO DAILY #90 tabs 01/06/24 tablet,extended release 24 hr Allergies Allergy/AdvReac Type Severity Reaction Status Date / Time Sulfa (Sulfonamide Allergy Rash Verified 05/12/24 13:29 Antibiotics) cillins Allergy unknown Uncoded 05/12/24 13:29 Review of Systems 2 Const: Denies: fever(s), chills, body aches or change in appetite ENMT: Denies: throat pain or dental pain Card: Reports: chest pain Resp: Denies: dyspnea GI: Denies: abdominal pain, nausea, vomiting or diarrhea Musc: Denies: neck pain or back pain Skin/Breast: Denies: rash Neuro: Denies: headache(s) PFSH ED 2 PFSH: Medical History Asthma Cervical spondylosis with radiculopathy Family History Other Hypertension Social History Smoking and tobacco/nicotine status: current every day tobacco/nicotine user Alcohol intake: former Physical Exam 2 Const: COMMON NORMALS: no acute distress, patient oriented x3 and healthy appearing HENMT: COMMON NORMALS: normocephalic and atraumatic HEAD & SCALP: n ormocephalic and atraumatic Eye: COMMON NORMALS: Equal, round and reactive pupils present and EOMs intact bilaterally PUPIL: Yes Equal, round and reactive pupils present Neck/C-Spine: COMMON NORMALS: full ROM and supple Chest: COMMONS NORMALS: normal inspection of the chest Resp: COMMON NORMALS: normal respiratory effort, No retractions, No use of accessory muscles and clear to auscultation bilaterally AUSCULTATION: clear to auscultation bilaterally Cardio: COMMON NORMALS: regular rate, regular rhythm and No murmurs present (Cardio) RATE: regular rate RHYTHM: regular rhythm Extremity: COMMON NORMALS: normal to inspection and full ROM Neuro: COMMON NORMALS: patient oriented x3, moves all extremities and no focal motor deficits Psych: COMMON NORMALS: mental status grossly normal, Normal thought process present and cooperative THOUGHT PROCESS: Normal thought process present Skin: COMMON NORMALS: no rashes or lesions noted and no wounds GENERAL SKIN EXAM: no rashes or lesions noted Course 2 Vital Signs: Vital signs: Vital Signs Temperature 97.4 F L 05/12/24 13:26 Pulse Rate 59 L 05/12/24 16:00 Respiratory Rate 18 05/12/24 16:00 Blood Pressure 150/98 05/12/24 16:00 Pulse Oximetry 96 05/12/24 16:00 Oxygen Delivery Me thod Room Air 05/12/24 16:00 MDM - Chest Pain Medical Decision Making Patient presents for chest pain is atypical in nature his troponin EKG and x-ray here are normal. He has no signs of ACS he had a recent cardiac cath that showed no ACS. He is stable for discharge at this time is to follow-up with cardiology return if worsening. Medical Records I reviewed the patient's medical records. Lab Data I reviewed the patient's lab results. 05/12/24 13:49 05/12/24 13:49 Radiology Impressions Chest X-Ray 05/12/24 13:18 IMPRESSION: 1. No acute cardiopulmonary finding. Laboratory Results WBC 8.33 10^3/uL (3.29-11.43) 05/12/24 13:49 RBC 5.38 10^6/uL (3.85-5.65) 05/12/24 13:49 Hgb 14.40 g/dL (11.27-16.99) 05/12/24 13:49 Hct 43.4 % (37-53) 05/12/24 13:49 MCV 80.7 fl (82-101) L 05/12/24 13:49 MCH 26.8 pg (27-33) L 05/12/24 13:49 MCHC 33.2 g/dL (30-55) 05/12/24 13:49 RDW 13.5 % (12.1-15.1) 05/12/24 13:49 Plt Count 260 10^3/cmm (157-399) 05/12/24 13:49 MPV 9.0 fL (7.4-10.4) 05/12/24 13:49 Neut % (Auto) 56.3 % 05/12/24 13:49 Lymph % (Auto) 35.3 % 05/12/24 13:49 [place] % (Auto) 5.8 % 05/12/24 13:49 Eos % (Auto) 1.7 % 05/12/24 13:49 Baso % (Auto) 0.5 % 05/12/24 13:49 Neut # (Auto) 4.70 10^3/uL (1.8-7.7) 05/12/24 13:49 Lymph # (Auto) 2.9 10^3/uL (0.8-4.8) 05/12/24 13:49 [place] # (Auto) 0.5 10^3/uL (0.2-0.9) 05/12/24 13:49 Eos # (Auto) 0.1 10^3/uL (0.0-0.8) 05/12/24 13:49 Baso # (Auto) 0.0 10^3/uL (0.0-0.1) 05/12/24 13:49 Nucleated RBC % (auto) 0 % 05/12/24 13:49 Nucleated RBCs # 0.0 /100WBC 05/12/24 13:49 PT 13.10 SECONDS (12.1-14.9) 05/12/24 13:49 INR 0.96 (0.8-1.2) 05/12/24 13:49 D-Dimer 0.33 ug/mLFEU (0-0.59) 05/12/24 13:49 Sodium 133 mmol/L (136-145) L 05/12/24 13:49 Potassium 3.7 mmol/L (3.5-5.1) 05/12/24 13:49 Chloride 99 mmol/L (98-107) 05/12/24 13:49 Carbon Dioxide 22 mmol/L (22-29) 05/12/24 13:49 Anion Gap 15.7 (5-19) 05/12/24 13:49 BUN 9 mg/dL (6-20) 05/12/24 13:49 Creatinine 0.8 mg/dL (0.7-1.2) 05/12/24 13:49 GFR Calculation 104.1 mL/min (90-130) 05/12/24 13:49 Glucose 103 mg/dL (65-115) 05/12/24 13:49 Calculated Osmolality 275 mOsm/kg (285-295) L 05/12/24 13:49 Calcium 8.4 mg/dL (8.5-10.5) L 05/12/24 13:49 Total Bilirubin 0.4 mg/dL (0.15-1.2) 05/12/24 13:49 AST 17 U/L (0-40) 05/12/24 13:49 ALT 21 U/L (0-41) 05/12/24 13:49 Alkaline Phosphatase 120 U/L (40-130) 05/12/24 13:49 Troponin T Baseline 10 ng/L (0-15) 05/12/24 13:49 Troponin T 120 Minute 8.53 ng/L (0-15) 05/12/24 15:26 Delta Troponin T -1.47 ABS# (0-10) L 05/12/24 15:26 Total Protein 6.5 g/dL (6.6-8.7) L 05/12/24 13:49 Albumin 4.0 g/dL (3.5-5.2) 05/12/24 13:49 Globulin 2.5 g/dL (1.3-4.6) 05/12/24 13:49 Lipase 34 U/L (13-60) 05/12/24 13:49 No radiology studies performed this visit EKG Data EKG 1: I personally reviewed and interpreted this EKG as follows: EKG interpretation date: 05/12/24 EKG interpretation time: 15:24 Interpretation: sinus scottie no st elevation qrs 106 qtc 448 Clincial Decision Support The following clinical decision support tools were used to aid in care of the patient HEART Score -> History: Slightly Suspicous, EKG: Non-specific Changes, Age: 45- 64 yrs, Risk Factors: 1 or 2 Risk Factors, Troponin: Baseline Trop <16 ng/L. Resulting HEART Score: 3. Discharge Plan Discharge Patient Disposition: Home Clinical Impression: Chest pain Condition: Stable Prescriptions: No Action metoprolol succinate 100 mg tablet extended release 24 hr 100 mg PO DAILY Qty: 90 3RF isosorbide mononitrate 30 mg tablet extended release 24 hr 30 mg PO DAILY Qty: 30 1RF Rx Instructions: ALONG WITH 60MG TO=90MG TOTAL isosorbide mononitrate 60 mg tablet extended release 24 hr 60 mg PO DAILY Rx Instructions: ALONG WITH 30MG TO= 90MG TOTAL losartan 25 mg tablet 25 mg PO DAILY albuterol sulfate 90 mcg/actuation HFA aerosol inhaler 2 puff INHALATION Q4H PRN (Reason: Shortness Of Breath) Eliquis 5 mg tablet 5 mg PO BID Qty: 60 0RF Discharge Orders: Discharge ED (Routine); Ordered 05/12/24 Ordered By: Jayden Owen Referrals: Dyllan Luque MD [Primary Care Provider] - 4-7 days Discharge Diet: Advance as tolerated Discharge Activity: Resume usual activity Patient Instructions: Chest Pain (ED) Coding Level of Care Code ED Glue Maker for Leroy Vigil
[2024-05-12 14:02] LABS: Basophils % 0.5 %; Eosinophils # 0.1 10^3/uL (0.0-0.8); Eosinophils % 1.7 %; Hematocrit 43.4 % (37-53); Lymphocytes # 2.9 10^3/uL (0.8-4.8); Lymphocytes % 35.3 %; Mean Corpuscular HGB Conc 33.2 g/dL (30-55); Mean Corpuscular Hemoglobin 26.8 pg (27-33); Mean Corpuscular Volume 80.7 fl (82-101); Monocytes # 0.5 10^3/uL (0.2-0.9); Monocytes % 5.8 %; Neutrophils % 56.3 %; Nucleated Red Blood Cells % 0 %; Platelet Count 260 10^3/cmm (157-399); Red Blood Count 5.38 10^6/uL (3.85-5.65); Red Cell Distribution Width 13.5 % (12.1-15.1); White Blood Count 8.33 10^3/uL (3.29-11.43)
[2024-05-12 14:16] LABS: INR 0.96 (0.8-1.2)
[2024-05-12 14:18] LABS: D Dimer 0.33 ug/mLFEU (0-0.59)
[2024-05-12 14:21] LABS: Troponin(5th) Baseline 10 ng/L (0-15)
[2024-05-12 14:23] LABS: Alanine Aminotransferase 21 U/L (0-41); Alkaline Phosphatase 120 U/L (40-130); Anion Gap 15.7 (5-19); Aspartate Amino Transferase 17 U/L (0-40); Blood Urea Nitrogen 9 mg/dL (6-20); Calcium 8.4 mg/dL (8.5-10.5); Carbon Dioxide 22 mmol/L (22-29); Chloride 99 mmol/L (98-107); Creatinine Clr Calc Pharmacy 128.7421; Globulin 2.5 g/dL (1.3-4.6); Glomerular Filtration Rate 104.1 mL/min (90-130); Glucose 103 mg/dL (65-115); Lipase 34 U/L (13-60); Osmolality Calculated 275 mOsm/kg (285-295); Potassium 3.7 mmol/L (3.5-5.1); Sodium 133 mmol/L (136-145); Total Bilirubin 0.4 mg/dL (0.15-1.2); Total Protein 6.5 g/dL (6.6-8.7)
--- NOTE | 2024-05-12 14:36 | PC.PHAR ---
Pt unsure of Isopsorbide Mononitrate-phoned [facility] for verification.
--- NOTE | 2024-05-12 15:18 | ECG_ITS ---
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 Measurements Intervals [place] Rate: 61 P: 42 FL: 120 QRS: 66 QRSD: 101 T: 63 QT: 398 QTc: 403 Interpretive Statements SINUS RHYTHM MODERATE VOLTAGE CRITERIA FOR LVH, CONSIDER NORMAL VARIANT [MEETS CRITERIA IN ONE OF: R(aVL), S(V1), R(V5), R(V5/V6)+S(V1)] Compared to ECG 12/26/2023 23:42:06 No significant changes Electronically Signed On 05-12-2024 13:46:06 CDT by Kurt José M.D. [id number]
[2024-05-12 16:15] LABS: Troponin 5 2HR 8.53 ng/L (0-15)
[2024-05-12 16:16] LABS: Troponin 5 2HR Delta -1.47 ABS# (0-10)
== END 2024-05-12 16:32 | disposition home or self-care (01) ==
PROVIDERS: Emergency Provider Emergency Medicine; PCP Family Medicine
DX: R07.9 Chest pain, unspecified (principal); R00.1 Bradycardia, unspecified; Z79.01 Long term (current) use of anticoagulants; Z72.0 Tobacco use
CPT/HCPCS: 36415; 71045; 80053; 83690; 84484; 85025; 85378; 85610; 93005; 99285

== ENCOUNTER 2024-10-23 19:02 | Emergency (ER) | payer BC, SELFPAY ==
[2024-10-23] VITALS (9 sets, daily range): BP systolic 106–134; BP diastolic 74–85; PULSE 99–130; RESP 16–30; TEMP 36.9; O2SAT 88–92
--- NOTE | 2024-10-23 19:23 | CTR_ITS ---
PROCEDURE INFORMATION: Exam: CTA Chest With Contrast Exam date and time: 10/23/2024 8:02 PM Age: 44 years old Clinical indication: Cough and shortness of breath; Cough with SOB, hypoxia, and tachycardia. ; Additional info: Dyspnea hypoxia tachypnea tachycardia TECHNIQUE: Imaging protocol: Computed tomographic angiography of the chest with contrast. Exam focused on the arteries. 3D rendering (Not supervised by radiologist): MIP and/or 3D reconstructed images were created by the technologist. Radiation optimization: All CT scans at this facility use at least one of these dose optimization techniques: automated exposure control; mA and/or kV adjustment per patient size (includes targeted exams where dose is matched to clinical indication); or iterative reconstruction. Contrast material: OMNI 350; Contrast volume: 64 ml; Contrast route: INTRAVENOUS (IV); COMPARISON: CT angio chest PE protcl [id number] 12/23/2023 5:40 PM RADIATION DOSE METRICS: Total DLP (mGy-cm): 439.77 FINDINGS: Pulmonary arteries: Normal. No pulmonary emboli. Aorta: Minimal calcific plaque involves the thoracic aorta and coronary arteries. The thoracic aorta is free of aneurysm and dissection. Lungs: Multiple patchy ground-glass opacities present throughout the [id number] lung. Lungs are free of consolidation. Pleural spaces: Unremarkable. No pneumothorax. No pleural effusion. Heart: Unremarkable. No cardiomegaly. No pericardial effusion. Lymph nodes: Mildly prominent mediastinal and hilar lymph nodes noted likely reactive. Bones/joints: Unremarkable. No acute fracture. Soft tissues: Unremarkable. CT/CT angio chest PE protcl [id number] IMPRESSION: 1. Negative exam for pulmonary embolus and aortic dissection. 2. Bilateral diffuse patchy ground-glass opacities throughout the lungs concerning for atypical/viral pneumonia. 3. Minimal atherosclerosis involving the thoracic aorta and coronary arteries.
--- NOTE | 2024-10-23 19:24 | W.ED.SOB ---
HPI - SOB/Dyspnea General: Chief Complaint: Shortness of Breath/Dyspnea Stated Complaint: Hard time breathing,Whezzing,Nasua Time Seen by Provider: 10/23/24 19:20 History of Present Illness: HPI Narrative: Patient presents to the ER with complaints of worsening shortness of breath cough tachycardia. Patient saw his PCP yesterday was put on steroids and inhaler antibiotics albuterol, doxycycline, prednisone, he was swabbed for the flu was told was negative but he was told he had a clinical cold. He did take the antibiotics inhaler and steroids today says he feels worse. Patient normally does not have to wear oxygen. In ER he has to have approximately 4 L to keep his O2 sat 90% or above he has no history of COPD, patient's pulses upon arrival was 125 respirations 30. Patient currently takes Eliquis for history of PE Related Data Home Medications ?Medication ?Instructions ?Recorded ?Confirmed albuterol sulfate 90 mcg/actuation 2 puff inhalation Q4H PRN 12/23/23 05/12/24 aerosol inhaler Shortness Of Breath isosorbide mononitrate 60 mg 60 mg PO DAILY 05/12/24 05/12/24 tablet,extended release 24 hr losartan 25 mg tablet 25 mg PO DAILY 05/12/24 05/12/24 Previous Rx's ?Medication ?Instructions ?Recorded apixaban 5 mg tablet (Eliquis) 5 mg PO BID #60 tabs 12/24/23 isosorbide mononitrate 30 mg 30 mg PO DAILY #30 tabs 01/06/24 tablet,extended release 24 hr metoprolol succinate 100 mg 100 mg PO DAILY #90 tabs 01/06/24 tablet,extended release 24 hr Allergies Allergy/AdvReac Type Severity Reaction Status Date / Time Sulfa (Sulfonamide Allergy Rash Verified 10/23/24 19:11 Antibiotics) cillins Allergy unknown Uncoded 10/23/24 19:11 Review of Systems General: Reports: 10 or more systems reviewed and unremarkable except in HPI and below PFSH ED PFSH: Medical History Asthma Cervical spondylosis with radiculopathy Family History Other Hypertension Social History Smoking and tobacco/nicotine status: current every day tobacco/nicotine user Alcohol intake: former Physical Exam Const: COMMON NORMALS: no acute distress, average body habitus, patient oriented x3, no limitations, healthy appearing, alert and well nourished HENMT: COMMON NORMALS: normocephalic, atraumatic, hearing grossly normal bilaterally, external ears normal and Normal external nose present HEAD & SCALP: normocephalic and atraumatic NOSE: Normal external nose present EXTERNAL EAR: Yes external ears normal Neck/C-Spine: COMMON NORMALS: full ROM, no lymphadenopathy, supple, no meningeal signs, no JVD and Thyroid normal THYROID: Thyroid normal Chest: COMMONS NORMALS: normal inspection of the chest and normal palpation of entire chest wall Resp: COMMON NORMALS: normal respiratory effort, No retractions, No use of accessory muscles and clear to auscultation bilaterally AUSCULTATION: clear to auscultation bilaterally Cardio: COMMON NORMALS: no JVD, regular rhythm, S1 normal heart sound present, S2 normal heart sound present, No gallops present (Cardio), No clicks present (Cardio), No murmurs present (Cardio) and No rub (Cardio); negative for regular rate (Tachycardic) RATE: abnormal rate (Tachycardic) RHYTHM: regular rhythm HEART SOUNDS: S1 normal heart sound present and S2 normal heart sound present GI: COMMON NORMALS: Normal to inspection, nondistended, normoactive bowel sounds present, Soft to palpation, non-tender, No hepatosplenomegaly present and no masses PALPATION: Yes Soft to palpation and Yes No hepatosplenomegaly present Neuro: COMMON NORMALS: patient oriented x3 SENSORIUM/ORIENTATION: Yes alert MENINGEAL SIGNS: Yes no meningeal signs Course Vital Signs: Vital signs: Vital Signs Temperature 98.5 F 10/23/24 19:07 Pulse Rate 103 H 10/23/24 22:00 Respiratory Rate 20 H 10/23/24 22:00 Blood Pressure 129/82 10/23/24 22:00 Pulse Oximetry 88 L 10/23/24 22:16 Oxygen Delivery Me thod Nasal Cannula 10/23/24 22:00 Oxygen Flow Rate 5 10/23/24 22:00 MDM - SOB/Dyspnea Medical Decision Making Patient presents to the ER hypoxic tachypneic and tachycardic. He is currently on antibiotics and steroids. White count was 17.8 rest of lab unremarkable, lactic acid normal, COVID influenza negative, RSV positive, chest CTA negative for PE positive for patchy groundglass opacities concerning for atypical viral pneumonia. These results was discussed with the patient. Patient still requiring 3.5 L to keep his oxygen saturation upwards of 92%. This was discussed with the patient that he does meet inpatient criteria due to his oxygen and that we should put him inpatient for oxygen and and steroids patient adamantly declined and wanted to go home. Patient does not have oxygen at home. A home health eval was obtained which showed patient qualifies for 3.5 L of oxygen. Home oxygen will be obtained patient be discharged home. Medical Records I reviewed the patient's medical records. Lab Data I reviewed the patient's lab results. 10/23/24 19:29 10/23/24 19: Labs/Radiology: Radiology Impressions Chest CTA 10/23/24 19:23 IMPRESSION: 1. Negative exam for pulmonary embolus and aortic dissection. 2. Bilateral diffuse patchy ground-glass opacities throughout the lungs concerning for atypical/viral pneumonia. 3. Minimal atherosclerosis involving the thoracic aorta and coronary arteries. Laboratory Results WBC 17.85 10^3/uL (3.29-11.43) H 10/23/24 19: RBC 5.94 10^6/uL (3.85-5.65) H 10/23/24 19: Hgb 15.90 g/dL (11.27-16.99) 10/23/24 19: Hct 47.0 % (37-53) 10/23/24 19: MCV 79.1 fl (82-101) L 10/23/24 19: MCH 26.8 pg (27-33) L 10/23/24 19: MCHC 33.8 g/dL (30-55) 10/23/24: RDW 12.9 % (12.1-15.1) 10/23/24 19: Plt Count 246 10^3/cmm (157-399) 10/23/24 19: MPV 9.1 fL (7.4-10.4) 10/23/24 19: Neut % (Auto) 84.1 % 10/23/24 19: Lymph % (Auto) 9.0 % 10/23/24 19: [place] % (Auto) 6.4 % 10/23/24 19: Eos % (Auto) 0.0 % 10/23/24 19: Baso % (Auto) 0.1 % 10/23/24 19: Neut # (Auto) 14.99 10^3/uL (1.8-7.7) H 10/23/24 19: Lymph # (Auto) 1.6 10^3/uL (0.8-4.8) 10/23/24 19: [place] # (Auto) 1.2 10^3/uL (0.2-0.9) H 10/23/24: Eos # (Auto) 0.0 10^3/uL (0.0-0.8) 10/23/24: Baso # (Auto) 0.0 10^3/uL (0.0-0.1) 10/23/24: Nucleated RBC % (auto) 0 % 10/23/24: Nucleated RBCs # 0.0 /100WBC 10/23/24: Specimen Type Arterial 10/23/24 19:55 Sample Site Brachial, right 10/23/24 19:55 ABG pH 7.45 (7.35-7.45) 10/23/24 19:55 ABG pCO2 36.0 mmHg (35-45) 10/23/24 19:55 ABG pO2 59.7 mmHg (80.0-100.0) L 10/23/24 19:55 ABG HCO3 25.2 mmol/L (22-26) 10/23/24 19:55 ABG O2 Saturation 93.9 10/23/24 19:55 ABG Base Excess 1.6 mmol/L (-2.0-2.0) 10/23/24 19:55 Len Test Pos 10/23/24 19:55 A-a O2 Gradient 5.9 mmHg (5-10) 10/23/24 19:55 Hematocrit 50.0 % (42-52) 10/23/24 19:55 Hgb O2 Saturation 91.3 % (95-100) L 10/23/24 19:55 Carboxyhemoglobin 2.6 %THgb (0.4-20.1) 10/23/24 19:55 Methemoglobin 0.1 % (0.4-1.5) L 10/23/24 19:55 Total Hemoglobin 16.3 g/dL (14-18) 10/23/24 19:55 Sodium 132.0 mmol/L (131-143) 10/23/24 19:55 Potassium 3.8 mmol/L (3.5-5.0) 10/23/24 19:55 Glucose 122.0 mg/dL (70-115) H 10/23/24 19:55 Ionized Calcium 1.2 mmol/L (1.1-1.4) 10/23/24 19:55 O2 Delivery Device Nc 10/23/24 19:55 O2 Liters/Min 5.0 % 10/23/24 19:55 [employer] Developer ID [email or web address] 10/23/24 19:55 Sodium 132 mmol/L (136-145) L 10/23/24 19:29 Potassium 4.0 mmol/L (3.5-5.1) 10/23/24 19:29 Chloride 95 mmol/L (98-107) L 10/23/24 19:29 Carbon Dioxide 25 mmol/L (22-29) 10/23/24 19:29 Anion Gap 16.0 (5-19) 10/23/24 19:29 BUN 12 mg/dL (6-20) 10/23/24 19:29 Creatinine 1.0 mg/dL (0.7-1.2) 10/23/24 19:29 GFR Calculation 80.4 mL/min (90-130) L 10/23/24 19:29 Glucose 127 mg/dL (65-115) H 10/23/24 19:29 Calculated Osmolality 275 mOsm/kg (285-295) L 10/23/24 19:29 Lactic Acid 1.8 mmol/L (0.5-2.2) 10/23/24 19:29 Calcium 10.0 mg/dL (8.5-10.5) 10/23/24 19:29 Total Bilirubin 0.3 mg/dL (0.15-1.2) 10/23/24 19:29 AST 21 U/L (0-40) 10/23/24 19:29 ALT 23 U/L (0-41) 10/23/24 19:29 Alkaline Phosphatase 137 U/L (40-130) H 10/23/24 19:29 Total Protein 6.9 g/dL (6.6-8.7) 10/23/24 19: Albumin 4.5 g/dL (3.5-5.2) 10/23/24 19: Globulin 2.4 g/dL (1.3-4.6) 10/23/24 19: Procalcitonin 0.08 ng/mL (0-0.5) 10/23/24 19:29 Urine Color Yellow (Yellow) 10/23/24 19:44 Urine Appearance Clear (CLEAR) 10/23/24 19:44 Urine pH 5.5 (5-7) 10/23/24 19:44 Ur Specific [place] 1.024 (1.005-1.030) 10/23/24 19:44 Urine Protein 1+ (Negative) A 10/23/24 19:44 Urine Glucose (UA) Trace (Normal) H 10/23/24 19:44 Urine Ketones Trace (Negative) 10/23/24 19:44 Urine Blood Negative (Negative) 10/23/24 19:44 Urine Nitrate Negative (Negative) 10/23/24 19:44 Urine Bilirubin Negative (Negative) 10/23/24 19:44 Urine Urobilinogen 1.0 mg/dL (Negative) 10/23/24 19:44 Ur Leukocyte Esterase Negative (Negative) 10/23/24 19:44 Urine RBC 0-2 /hpf (0-2) 10/23/24 19:44 Urine WBC 0-5 /hpf (0-5) 10/23/24 19:44 Ur Squamous Epith Cells 0-5 /hpf (0-5) 10/23/24 19:44 Amorphous Sediment Not Reportable 10/23/24 19:44 Urine Bacteria None seen /hpf (NONE) 10/23/24 19:44 Hyaline Casts 0.81 /lpf 10/23/24 19:44 Coronavirus (PCR) Negative (Negative) 10/23/24 20:34 Influenza A (PCR) Negative (Negative) 10/23/24 20:34 Influenza Type B (PCR) Negative (Negative) 10/23/24 20:34 RSV (PCR) Positive (Negative) A 10/23/24 20:34 All radiology interpretation(s) finalized by discharge Discharge Plan Discharge Patient Disposition: Home Clinical Impression: Acute hypoxemic respiratory failure, Pneumonia due to respiratory syncytial virus Condition: Stable Prescriptions: No Action metoprolol succinate 100 mg tablet extended release 24 hr 100 mg PO DAILY Qty: 90 3RF isosorbide mononitrate 30 mg tablet extended release 24 hr 30 mg PO DAILY Qty: 30 1RF Rx Instructions: ALONG WITH 60MG TO=90MG TOTAL isosorbide mononitrate 60 mg tablet extended release 24 hr 60 mg PO DAILY Rx Instructions: ALONG WITH 30MG TO= 90MG TOTAL losartan 25 mg tablet 25 mg PO DAILY albuterol sulfate 90 mcg/actuation HFA aerosol inhaler 2 puff INHALATION Q4H PRN (Reason: Shortness Of Breath) Eliquis 5 mg tablet 5 mg PO BID Qty: 60 0RF Discharge Orders: Discharge ED (Routine); Ordered 10/23/24 Ordered By: Bryn Telles Other Ambulatory Orders: DME: Oxygen (Order) Location: None Selected Ordered By: Bryn Telles Referrals: Dyllan Luque MD [Primary Care Provider] - 1 week Patient Instructions: Acute Respiratory Failure (ED), Hypoxia (ED), Using Oxygen at Home (ED), RSV (Respiratory Syncytial Virus) Infection (ED) Activity Restrictions/Additional Instructions: You have been diagnosed with RSV pneumonia, acute respiratory failure with hypoxia. You have been given a breathing treatment and steroids in the ER. You do qualify for home oxygen at 3.5 L per nasal cannula. There is no definitive treatment for RSV, your body must fight it off. However during this time you will be required to use oxygen to keep your oxygen saturation at 90% or above. It was discussed with you the need to be placed in the hospital for observation due to his oxygen need however he did not want to stay therefore we were able to get you oxygen to go home 1. If your condition worsens such as your oxygen levels stay low, it becomes harder to breathe, your heart races you cannot catch her breath you feel lightheaded or dizzy felt you are in a pass out please immediately return back to the ER for further evaluation. Please continue to use the antibiotics and steroids you are currently on. Print Language: Citizen [place] Coding Level of Care Code ED Gse Mechanic for Leroy Vigil
[2024-10-23 19:37] LABS: Basophils % 0.1 %; Lymphocytes # 1.6 10^3/uL (0.8-4.8); Mean Corpuscular HGB Conc 33.8 g/dL (30-55); Mean Corpuscular Hemoglobin 26.8 pg (27-33); Mean Corpuscular Volume 79.1 fl (82-101); Mean Platelet Volume 9.1 fL (7.4-10.4); Monocytes # 1.2 10^3/uL (0.2-0.9); Monocytes % 6.4 %; Neutrophils # 14.99 10^3/uL (1.8-7.7); Neutrophils % 84.1 %; Nucleated Red Blood Cells % 0 %; Platelet Count 246 10^3/cmm (157-399); Red Blood Count 5.94 10^6/uL (3.85-5.65); Red Cell Distribution Width 12.9 % (12.1-15.1); White Blood Count 17.85 10^3/uL (3.29-11.43)
[2024-10-23] MEDS: methylPREDNISolone sod succ 125 mg/2 mL INJ IVP (19:40)
[2024-10-23] MEDS: ipratropium-albuterol 3 mL Neb INHALATION (19:46)
[2024-10-23 19:54] LABS: Lactic Sepsis W/Reflex 1.8 mmol/L (0.5-2.2)
[2024-10-23 19:55] LABS: Alanine Aminotransferase 23 U/L (0-41); Albumin Level 4.5 g/dL (3.5-5.2); Alkaline Phosphatase 137 U/L (40-130); Aspartate Amino Transferase 21 U/L (0-40); Blood Urea Nitrogen 12 mg/dL (6-20); Carbon Dioxide 25 mmol/L (22-29); Chloride 95 mmol/L (98-107); Creatinine Clr Calc Pharmacy 105.1254; Globulin 2.4 g/dL (1.3-4.6); Glomerular Filtration Rate 80.4 mL/min (90-130); Glucose 127 mg/dL (65-115); Osmolality Calculated 275 mOsm/kg (285-295); Sodium 132 mmol/L (136-145); Total Bilirubin 0.3 mg/dL (0.15-1.2); Total Protein 6.9 g/dL (6.6-8.7)
[2024-10-23 19:59] LABS: ABG PH Result 7.45 (7.35-7.45); Alveolar-Arterial Oxygen Gradi 5.9 mmHg (5-10); Base Excess ABG 1.6 mmol/L (-2.0-2.0); Blood Gas Allen Test Pos; Blood Gas Sample Site Brachial, right; Blood Gas Sample Type Arterial; Carboxyhemoglobin 2.6 %THgb (0.4-20.1); HCO3 ABG 25.2 mmol/L (22-26); HGB O2 Sat 91.3 % (95-100); Ionized Calcium Level - ABG 1.2 mmol/L (1.1-1.4); Methemoglobin 0.1 % (0.4-1.5); Oxygen Device NC; Oxygen Saturation ABG 93.9; PO2 ABG 59.7 mmHg (80.0-100.0); Potassium Level - ABG 3.8 mmol/L (3.5-5.0); Total Hemoglobin 16.3 g/dL (14-18)
[2024-10-23 20:02] LABS: Procalcitonin 0.08 ng/mL (0-0.5)
[2024-10-23] MEDS: iohexol 350 mg/mL 500 mL Btl (per mL) IV (20:04)
[2024-10-23 20:08] LABS: Bilirubin Urine Negative (Negative); Blood Urine Negative (Negative); Glucose Urine UA Trace (Normal); Ketones Urine Trace (Negative); Leukocyte Esterase Urine Negative (Negative); Nitrate Urine Negative (Negative); Protein Urine 1+ (Negative); Specific Gravity, Urine 1.024 (1.005-1.030); Urine Appearance Clear (CLEAR); Urine Color Yellow (Yellow); pH Urine 5.5 (5-7)
[2024-10-23 20:12] LABS: Add Urine Microscopic? YES; Bacteria Urine None Seen /hpf; Hyaline Casts Urine 0.81 /lpf; RBC Urine 0-2 /hpf (0-2); Squamous Epithelial Cell Urine 0-5 /hpf (0-5); WBC Urine 0-5 /hpf (0-5)
--- NOTE | 2024-10-23 20:43 | ECG_ITS ---
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1980 Requested By: Bryn Telles Order Number: [id number] Matias MD: CIARRA HENDERSON Measurements Intervals [place] Rate: 107 P: 44 WI: 117 QRS: 68 QRSD: 96 T: 61 QT: 299 QTc: 400 Interpretive Statements SINUS TACHYCARDIA WITH SHORT WI INTERVAL POSSIBLE LEFT ATRIAL ENLARGEMENT [-0.1mV P-WAVE IN V1/V2] POSSIBLE LEFT VENTRICULAR HYPERTROPHY [VOLTAGE CRITERIA PLUS LAE OR QRS WIDENING] NONSPECIFIC T-WAVE ABNORMALITY Compared to ECG 05/12/2024 13:37:09 Short WI interval now present T-wave abnormality now present Sinus rhythm no longer present Electronically Signed On 10-25-2024 21:10:33 PEAT SHREDDER TENDER by CIARRA HENDERSON [id number]
[2024-10-23 21:37] LABS: Influenza A NEGATIVE (Negative); Influenza B NEGATIVE (Negative); SARS-CoV-2 PCR NEGATIVE (Negative)
[2024-10-23 21:42] LABS: Respiratory Syncytial Virus Ce POSITIVE (Negative)
[2024-10-24 00:33] VITALS: BP 134/81; PULSE 91; O2SAT 96
== END 2024-10-24 00:35 | disposition home or self-care (01) ==
PROVIDERS: Emergency Provider Emergency Medicine; PCP Family Medicine
DX: J96.01 Acute respiratory failure with hypoxia (principal); J12.1 Respiratory syncytial virus pneumonia; Z79.01 Long term (current) use of anticoagulants; Z11.52 Encounter for screening for COVID-19; Z72.0 Tobacco use
CPT/HCPCS: 36415; 36600; 71275; 80051; 80053; 81001; 82330; 82805; 83605; 84145; 85025; 87040; 87637; 93005; 94640; 94760; 96374; 99285; J2919

== ENCOUNTER 2024-12-04 13:39 | Emergency (ER) | payer OTHER, BC, SELFPAY ==
--- NOTE | 2024-12-04 13:10 | ECG_ITS ---
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 Measurements Intervals [place] Rate: 91 P: 45 UT: 113 QRS: 69 QRSD: 100 T: 61 QT: 349 QTc: 431 Interpretive Statements SINUS RHYTHM WITH SHORT UT INTERVAL MODERATE VOLTAGE CRITERIA FOR LVH, CONSIDER NORMAL VARIANT [MEETS CRITERIA IN ONE OF: R(aVL), S(V1), R(V5), R(V5/V6)+S(V1)] Compared to ECG 10/23/2024 20:43:40 Sinus tachycardia no longer present T-wave abnormality no longer present Electronically Signed On 12-05-2024 07:40:21 CDT by Kurt José M.D. [id number]
[2024-12-04 13:40] VITALS: BP 158/114; PULSE 89; RESP 16; O2SAT 95; BMI 31.0
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
[2024-12-04 14:05] LABS: Basophils % 0.4 %; Eosinophils # 0.1 10^3/uL (0.0-0.8); Eosinophils % 1.1 %; Lymphocytes # 3.9 10^3/uL (0.8-4.8); Mean Corpuscular HGB Conc 33.5 g/dL (30-55); Mean Corpuscular Hemoglobin 26.6 pg (27-33); Mean Corpuscular Volume 79.3 fl (82-101); Mean Platelet Volume 8.7 fL (7.4-10.4); Monocytes # 0.9 10^3/uL (0.2-0.9); Monocytes % 7.5 %; Neutrophils # 6.13 10^3/uL (1.8-7.7); Neutrophils % 54.3 %; Nucleated Red Blood Cells % 0 %; Platelet Count 317 10^3/cmm (157-399); Red Cell Distribution Width 13.2 % (12.1-15.1); White Blood Count 11.27 10^3/uL (3.29-11.43)
[2024-12-04 14:20] LABS: Alanine Aminotransferase 33 U/L (0-41); Albumin Level 4.5 g/dL (3.5-5.2); Alkaline Phosphatase 116 U/L (40-130); Anion Gap 14.9 (5-19); Aspartate Amino Transferase 36 U/L (0-40); Blood Urea Nitrogen 5 mg/dL (6-20); Calcium 9.1 mg/dL (8.5-10.5); Carbon Dioxide 25 mmol/L (22-29); Chloride 91 mmol/L (98-107); Globulin 2.9 g/dL (1.3-4.6); Glomerular Filtration Rate 90.8 mL/min (90-130); Glucose 112 mg/dL (65-115); Osmolality Calculated 262 mOsm/kg (285-295); Potassium 3.9 mmol/L (3.5-5.1); Sodium 127 mmol/L (136-145); Total Bilirubin 0.3 mg/dL (0.15-1.2); Total Protein 7.4 g/dL (6.6-8.7)
[2024-12-04 14:26] LABS: Alcohol Level < 10 mg/dL (0-10)
[2024-12-04] MEDS: iohexol 350 mg/mL 500 mL Btl (per mL) IV (14:40)
--- NOTE | 2024-12-04 15:15 | PC.PHAR ---
Patient states he still takes Eliquis Last fill date was 10/09/24 30days , verified with [facility]
[2024-12-04] MEDS: ondansetron 2 mg/ML SDV 2 mL 4 MG IVP (15:42)
[2024-12-04] MEDS: ketorolac 30 mg/mL INJ IVP (15:42)
[2024-12-04] MEDS: morphine 4 mg/mL SDV 1 mL IVP (15:42)
[2024-12-04 15:53] LABS: Bilirubin Urine Negative (Negative); Blood Urine Negative (Negative); Glucose Urine UA Negative (Normal); Ketones Urine Negative (Negative); Leukocyte Esterase Urine Negative (Negative); Nitrate Urine Negative (Negative); Protein Urine Negative (Negative); Urine Appearance Clear (CLEAR); Urine Color Yellow (Yellow)
[2024-12-04 15:56] VITALS: BP 142/97; PULSE 76; O2SAT 91
[2024-12-04 15:58] LABS: Add Urine Microscopic? YES; Bacteria Urine None Seen /hpf; RBC Urine 0-2 /hpf (0-2); Squamous Epithelial Cell Urine 0-5 /hpf (0-5); WBC Urine 0-5 /hpf (0-5)
[2024-12-04 16:01] LABS: Specific Gravity, Urine 1.047 (1.005-1.030)
[2024-12-04 16:02] LABS: Amphetamines Screen Urine Negative (Negative); Barbiturates Screen Urine Negative (Negative); Benzodiazepines Screen Urine Negative (Negative); Cocaine Screen Urine Negative (Negative); Opiate Screen Urine Negative (Negative); PCP Screen Urine Negative (Negative); THC Screen Urine Negative (Negative)
[2024-12-04 17:07] VITALS: BP 129/84; PULSE 70; O2SAT 93
== END 2024-12-04 17:08 | disposition home or self-care (01) ==
PROVIDERS: Emergency Provider Family Medicine; PCP Family Medicine
DX: R07.89 Other chest pain (principal); V89.2XXA Person injured in unspecified motor-vehicle accident, traffic, initial encounter; Z79.01 Long term (current) use of anticoagulants; Z72.0 Tobacco use
CPT/HCPCS: 70450; 71260; 72125; 73562; 74177; 80053; 80306; 80307; 81001; 85025; 93005; 96374; 96375; 99285; J1885; J2270; J2405